=== PATIENT | male | born 1955 | race Caucasian/White ===

== ENCOUNTER 2023-11-24 12:30 | Outpatient (AMB) | payer MEDICARE, SELFPAY ==
--- NOTE | 2023-11-24 12:37 | MHC.PC.OV ---
Vital Signs 11/24/23 12:38 Height 5 ft 8 in Weight 229 lb BMI 34.8 BP 120/82 Blood Pressure Location Lt brachial Position Sitting Intake Visit Reasons: PE Intake Note: Patient here for a physical exam Lead Generation Specialist Required: No Accompanied by: Son Allergies No Known Allergies [NKA] Allergy (Verified 11/24/23 12:46) Medication List - Last Reconciled 11/24/23 by Kimmy Maher MD doxepin 100 mg (2 x 50 mg) PO BEDTIME 90 days quetiapine ER (Seroquel XR) 400 mg PO BEDTIME 90 days Tobacco use date assessed: 11/24/23 Fall risk assessment: 2 + Falls in past year Last assessed Fall Risk: 11/24/23 Dental Screening Dental Screen Date: 11/24/23 Did you have a dental visit in the last 12 months?: No Did you have a dental problem in the last 6 months where you did not have access to dental care?: No Was dental information given to patient?: Patient has dentist HPI HPI Comments History of Present Illness Details This is a 68-year-old male with mild major depression that comes for his physical exam accompanied by son. Has never had a colonoscopy and has family history of colon cancer in first-degree relative in her 50s. He follows with counseling frequently for his depression and has been stable on Seroquel. No chest pain or shortness on breath. [facility] Medical History Primary insomnia Surgical History History of back surgery Family History (Updated 11/24/23 @ 12:53 by Kimmy Maher MD) Mother Emphysema lung Cancer, Onset Age: 50 Father Blood clots Emphysema lung Family/Other Mental health disorder Substance use disorder Brother Cancer, Onset Age: 40 Social History Housing: Apartment Alcohol intake: never Patient Tobacco Use Status: Former Tobacco user Tobacco use type: Pipe Cigarettes Per Day: 12 e-Cigarette/Vaping Use: Currently Using Second Hand Smoke Exposure: No service: No Current occupational status: disabled Cognitive needs: No Hearing needs: No Vision needs: Yes Questionnaire PHQ-9 Over the last 2 weeks, how often have you been bothered by any of the following problems? 1. Little interest or pleasure in doing things: nearly every day 2. Feeling down, depressed, or hopeless: nearly every day 3. Trouble falling or staying asleep, or sleeping too much: more than half the days 4. Feeling tired or having little energy: more than half the days 5. Poor appetite or overeating: several days 6. Feeling bad about yourself - or that you are a failure or have let yourself or your family down: several days 7. Trouble concentrating on things, such as reading the newspaper or watching television: not at all 8. Moving or speaking so slowly that other people could have noticed. Or the opposite - being so fidgety or restless that you have been moving around a lot more than usual: not at all 9. Thoughts that you would be better off or of hurting yourself in some way: not at all Total score: 12 Depression Screening Interpretation: Positive Depression Screening Follow-up: Existing condition, In treatment, Community Mental Health Worker F/U and Follow-up Visit Requested Depression Screening Done: Yes 13555 - PHQ-9 Billing: Yes Source: Developed by Drs. Tavo Myrick, Sheeba Pike, Phil Clements and colleagues, with an educational dexter from [employer]. Thrive Questionnaire Date Thrive assessed: 11/24/23 I am a: Patient What is your living situation today?: I have a steady place to live Within the past 12 months, did the food you bought not last and you didn't have the money to get more?: Never true Within the past 12 months, did you worry whether your food would run out before you got money to buy more?: Never true Do you have trouble paying for medicines?: No Do you have trouble getting transportation to medical appointments?: No Do you have trouble paying your heating and electricity bill?: No Do you have trouble taking care of your child, family member or friend?: No Do you have trouble with day-to-day activities such as bathing, preparing meals, shopping, managing finances, etc.?: No Are you currently unemployed and looking for a job?: No Are you interested in more education?: No Please select the resources that you would like help with: None Currently or been in a relationship where the following occur: No concerns reported THRIVE Score: 0 AUDIT C Alcohol Use Questionnaire (AUDIT-C) 1. How often do you have a drink containing alcohol?: Never Total Score: 0 Score Reviewed/Action Taken: No MASSIEL-7 AMB Questionnaire MASSIEL-7 Date MASSIEL - 7 assessed: 11/24/23 Feeling nervous, anxious, or on edge: 3 = Nearly every day Not being able to stop or control worryin = Several days Worrying too much about different things: 2 = More than half the days Trouble relaxin = Not at all Being so restless that it is hard to sit still: 0 = Not at all Becoming easily annoyed or irritable: 0 = Not at all Feeling afraid as if something awful might happen: 1 = Several days Total MASSIEL-7 score (0-4 normal; 5-9 mild; 10-14 moderate; 15-21 severe): 7 Source: Developed by Drs. Tavo Myrick, Sheeba Pike, Phil Clements and colleagues, with an educational dexter from [employer]. MASSIEL-7 Assessment Billing MASSIEL-7 Assessment Tool: MASSIEL-7 Assessment 97280 Review of Systems Const All systems reviewed & are unremarkable except as noted in HPI and below Card Denies chest pain at rest, Denies chest pain with activity, Denies edema, Denies irregular heart rhythm, Denies claudication, Denies dyspnea, Denies dyspnea on exertion, Denies orthopnea, Denies paroxysmal nocturnal dyspnea and Denies slow heart rate Resp Denies cough, Denies dyspnea and Denies dyspnea on exertion GI Denies abdominal pain, Denies change in bowel habits, Denies excessive flatus, Denies nausea and Denies vomiting Denies urinary hesitancy, Denies urinary incontinence and Denies urinary urgency Musc Denies abnormal gait, Denies atrophy, Denies deformity and Denies limited range of motion Neuro Denies abnormal gait, Denies behavioral changes and Denies lack of coordination Psych Denies behavioral changes Physical exam (Primary Care) Vital Signs: Last Vital Signs BP 120/82 11/24/23 12:38 BMI result Body Mass Index 34.8 BMI Assessment/Plan discussion: High BMI High, discussed plan: lifestyle, weight reduction, dietary and physical activity Tobacco/Smoking Status: Tobacco use Status Tobacco use date assessed 11/24/23 11/24/23 12:45 Patient Tobacco Use Status Former Tobacco user 11/24/23 12:45 Tobacco use type Pipe 11/24/23 12:45 e-Cigarette/Vaping Use Currently Using 11/24/23 12:45 Are you ready to quit: Yes Tobacco cessation counseling provided: Yes Items discussed: QuitWorks Relapse Prevention: discussed the importance of a supportive environment, discussed negative mood or depression after quitting, weight gain after smoking is common and discussed dietary, exercise and/or lifestyle changes Number of minutes spent counselin PHQ-9: PHQ-9 Score PHQ-9: Total score 12 11/24/23 12:45 Depression Screening Interpretation: Positive Depression Screening Follow-up: Existing condition, In treatment, Community Mental Health Worker F/U and Follow-up Visit Requested Thrive Assessment: Date of Thrive Assessment Date Thrive assessed 11/24/23 11/24/23 12:45 Currently or been in a relationship where the following occur: No concerns reported HENMT Head: Yes normal to inspection, Yes normocephalic and Yes atraumatic Ears: external ears normal Eyes General: appearance normal, both eyes and all related structures Eyelids: Yes eyelids normal Conjunctivae: conjunctivae normal Neck Neck: Yes normal visual inspection and Yes supple Resp Effort & Inspection: normal respiratory effort Auscultation: clear to auscultation bilaterally Cardio Jugular venous distension: no JVD Rate: regular rate Rhythm: regular rhythm Heart sounds: S1 normal heart sound present and S2 normal heart sound present GI Inspection: Yes normal to inspection Palpation (GI): Soft to palpation and nontender Auscultation: normal bowel sounds Skin General skin exam: no rashes or lesions noted Neuro General: no focal motor deficits Extrem General: Yes full ROM Psych Appearance: grossly normal Assessment and Plan Assessment & Plan (1) Physical exam: Code(s): Z00.00 - Encounter for general adult medical examination without abnormal findings Plan: Repeat in a year. (2) Mild recurrent major depression: Code(s): F33.0 - Major depressive disorder, recurrent, mild Plan: Continue counseling. Continue Seroquel. Orders: Orders Comprehensive Dana. Panel Fast Today Z00.00 - Encounter for general adult medical examination without abnormal findings Lipid Panel Today E78.5 - Hyperlipidemia, unspecified, Z00.00 - Encounter for general adult medical examination without abnormal findings Referrals Open Access Screening Colonoscopy Referral Z12.11 - Encounter for screening for malignant neoplasm of colon Medications: Changed From quetiapine ER (Seroquel XR) 400 mg PO BEDTIME 90 days 90 tabs 1RF To quetiapine ER (Seroquel XR) 400 mg PO BEDTIME 30 days 30 tabs 6RF Coding Level of Care Code Est Pt Prev Care >65y(31178) Diagnoses Physical exam Z00.00 Mild recurrent major depression F33.0 Additional Codes MASSIEL-7 Assessment Billing - MASSIEL-7 Assessment Tool: MASSIEL-7 Assessment 55805 ([id number]) Time Spent (min) 35
[2023-11-24 12:38] VITALS: BP 120/82; BMI 34.8
== END 2023-11-24 13:02 | disposition home or self-care (01) ==
PROVIDERS: PCP Internal Medicine; Visit Provider Internal Medicine
DX: F33.0 Major depressive disorder, recurrent, mild (principal)
CPT/HCPCS: 99213

== ENCOUNTER 2024-08-11 11:20 | Outpatient (AMB) | payer MEDICARE, SELFPAY ==
[2024-08-11 11:23] VITALS: BP 126/78; PULSE 77; RESP 16; TEMP 37.2; O2SAT 94; BMI 35.8
--- NOTE | 2024-08-11 11:23 | MHC.PC.OV ---
Vital Signs 08/11/24 11:23 Height 5 ft 8 in Weight 235 lb 3.2 oz BMI 35.8 BP 126/78 Blood Pressure Location Lt brachial Position Sitting Respiration 16 Pulse 77 Pulse Source Pulse Oximeter Temp 99.0 F Temp Source Oral Pulse Oximetry (%) 94 Oxygen Delivery Method Room Air Intake Visit Reasons: Preop 08/22 left eye 6/ right eye Intake Note: Patient is here for a Pre-op for cataract extraction scheduled with Dr. Hancock on OS: 08/22/2024 and OD: 09/05/2024. Brush Clearer Surveying Required: No Accompanied by: Son Allergies No Known Allergies [NKA] Allergy (Verified 08/11/24 12:10) Medication List - Last Reconciled 08/11/24 by TONY Ruiz quetiapine ER (Seroquel XR) 400 mg PO BEDTIME 30 days Tobacco use date assessed: 08/11/24 Fall risk assessment: 2 + Falls in past year Last assessed Fall Risk: 08/11/24 Dental Screening Dental Screen Date: 08/11/24 Did you have a dental visit in the last 12 months?: No Did you have a dental problem in the last 6 months where you did not have access to dental care?: No Was dental information given to patient?: No HPI Preop 08/22 left eye / right eye HPI Details The patient presenting for preop clearance. Patient of Dr. Yu, was last seen in office on 11/24/2023 Surgery: Cataract surgery on both eyes. Patient reports that his left eye has been impaired for 10 years in the right eye for 5 years. Patient reports blurred vision difficulty driving at night. Date: Left eye 08/22/2024 and right eye 09/05/2024 Surgeon/location: Dr. Hancock at [place], [place] Anesthesia: Mac. Patient reports previous back surgery under general anesthesia that he tolerated well. The patient will be getting a less potent anesthesia for this procedure. The patient denies any clotting disorder and he is not on any anticoagulants. Past medical history significant for hepatitis-C, depression, insomnia, obesity The patient does not have any blood work on file. Labs ordered for the patient to complete as soon as possible. An EKG was added as well for the patient to complete at the same time. Discussed with patient that his clearances depending on these results. The patient denies shortness of breath, chest pain, heart palpitation, dizziness No abdominal pain/change in bowel habits No urinary symptoms PFSH Medical History Primary insomnia Surgical History History of back surgery Family History Mother Emphysema lung Cancer, Onset Age: 50 Father Blood clots Emphysema lung Family/Other Mental health disorder Substance use disorder Brother Cancer, Onset Age: 40 Social History Housing: Apartment Alcohol intake: never Patient Tobacco Use Status: Former Tobacco user Tobacco use type: Pipe Cigarettes Per Day: 12 e-Cigarette/Vaping Use: Currently Using Second Hand Smoke Exposure: No service: No Current occupational status: disabled Cognitive needs: No Hearing needs: No Vision needs: Yes (Glasses) Questionnaire Thrive Questionnaire Date Thrive assessed: 08/11/24 I am a: Patient What is your living situation today?: I have a steady place to live Within the past 12 months, did the food you bought not last and you didn't have the money to get more?: Never true Within the past 12 months, did you worry whether your food would run out before you got money to buy more?: Never true Do you have trouble paying for medicines?: No Do you have trouble getting transportation to medical appointments?: No Do you have trouble paying your heating and electricity bill?: No Do you have trouble taking care of your child, family member or friend?: No Do you have trouble with day-to-day activities such as bathing, preparing meals, shopping, managing finances, etc.?: No Are you currently unemployed and looking for a job?: No Are you interested in more education?: No Please select the resources that you would like help with: None Currently or been in a relationship where the following occur: No concerns reported THRIVE Score: 0 AUDIT C Alcohol Use Questionnaire (AUDIT-C) 1. How often do you have a drink containing alcohol?: Never Total Score: 0 Score Reviewed/Action Taken: No MASSIEL-7 AMB Questionnaire MASSIEL-7 Date MASSIEL - 7 assessed: 11/24/23 Source: Developed by Drs. Tavo Myrick, Sheeba Pike, Phil Clements and colleagues, with an educational dexter from [employer]. Review of Systems Const Denies headache(s) Eyes Reports blurry vision and Denies loss of vision ENT Denies vertigo, Denies dizziness, Denies headache(s) and Denies sore throat Card Denies chest pain, Denies leg edema and Denies lightheadedness Resp Denies cough, Denies hemoptysis and Denies wheezing GI Denies abdominal pain, Denies melena, Denies constipation, Denies diarrhea and Denies vomiting Denies dysuria, Denies urinary frequency and Denies urinary urgency Musc Denies arthralgias, Denies joint swelling, Denies numbness and Denies tingling Neuro Denies Abnormal speech present, Denies behavioral changes, Denies vertigo, Denies dizziness, Denies headache(s), Denies loss of vision, Denies memory loss, Denies numbness and Denies tingling Psych Reports anxiety, Denies behavioral changes, Reports depression, Denies memory loss, Denies panic attacks and Reports other (Insomnia) Jaiv/Lymph Denies easy bleeding and Denies easy bruising Aller/Immun Denies wheezing Physical exam (Primary Care) Vital Signs: Last Vital Signs Temp 99.0 F 08/11/24 11:23 Pulse 77 08/11/24 11:23 Resp 16 08/11/24 11:23 BP 126/78 08/11/24 11:23 Pulse Ox 94 08/11/24 11:23 Oxygen Delivery Method Room Air 08/11/24 11:23 BMI result Body Mass Index 35.8 Tobacco/Smoking Status: Tobacco use Status Tobacco use date assessed 08/11/24 08/11/24 11:26 Patient Tobacco Use Status Former Tobacco user 08/11/24 11:26 Tobacco use type Pipe 08/11/24 11:26 e-Cigarette/Vaping Use Currently Using 08/11/24 11:26 Thrive Assessment: Date of Thrive Assessment Date Thrive assessed 08/11/24 08/11/24 11:26 Currently or been in a relationship where the following occur: No concerns reported Const General: healthy appearing, no acute distress, alert and awake Nutritional Appearance: well nourished Orientation/consciousness: oriented to person, oriented to place and oriented to time HENMT Ears: TM's normal bilaterally General nose exam: Normal nasal mucous membranes and turbinates present Eyes Conjunctivae: conjunctivae normal Sclerae: sclerae normal Pupils: Equal, round and reactive pupils present Neck Neck: Yes no lymphadenopathy and Yes no JVD Thyroid: Thyroid normal Carotids: no bruits Resp Effort & Inspection: normal respiratory effort and not tachypneic Auscultation: no crackles, no rales, no rhonchi and no wheezes Cardio Rate: regular rate Rhythm: regular rhythm Heart sounds: no murmurs and normal S1 and S2 GI Palpation (GI): Soft to palpation, nontender, no hepatomegaly and no splenomegaly Auscultation: normal bowel sounds Skin General skin exam: no rashes or lesions noted and dry skin Neuro General: oriented to person, oriented to place and oriented to time Cranial nerves: Yes Equal, round and reactive pupils present Speech: No Abnormal speech present Gait exam (Neuro): Normal gait present Motor exam (neuro): no tremor noted Extrem Right upper extremity: full ROM Left upper extremity: full ROM Right lower extremity: full ROM; no edema Left lower extremity: full ROM; no edema Psych Mental Status: mental status grossly normal Speech and movement: Normal speech and movement present Affect: normal affect Attitude: cooperative Thought process: Normal thought process present Coding Level of Care Code Tele Est Pt Level 3 (73075) Diagnoses Preoperative clearance Z01.818 Blurry vision H53.8 Chronic hepatitis C without hepatic coma B18.2 Hepatic coma status: without hepatic coma Viral hepatitis chronicity: chronic Mild recurrent major depression F33.0 Obesity (BMI 30.0-34.9) E66.9 Primary insomnia F51.01 Time Spent (min) 35 Assessment & Plan Assessment & Plan (1) Preoperative clearance: Code(s): Z01.818 - Encounter for other preprocedural examination Category: Medical Plan: Upon completing ordered labs an EKG that are within reasonable limits. The patient would be at acceptable risk for proposed surgery. Reviewed with the patient that no surgery is completely free of risk and that this examination is to assist the surgeon in reviewing informed consent (2) Blurry vision: Code(s): H53.8 - Other visual disturbances Category: Medical Plan: Pending bilateral cataract surgery to improve vision (3) Hepatitis C: Code(s): B19.20 - Unspecified viral hepatitis C without hepatic coma Category: Medical Qualifiers: Hepatic coma status: without hepatic coma Viral hepatitis chronicity: chronic Qualified Code(s): B18.2 - Chronic viral hepatitis C Plan: Patient reports that he looked into possible treatment for his hep C. He is hopeful due to someone that he know, hep C became undetectable without treatment. (4) Mild recurrent major depression: Code(s): F33.0 - Major depressive disorder, recurrent, mild Category: Medical Plan: Encouraged CBT. Continue Seroquel 400 mg (5) Obesity (BMI 30.0-34.9): Code(s): E66.9 - Obesity, unspecified Category: Medical Plan: Reinforced low-cholesterol/carbohydrate/fat diet and activity as tolerated (6) Primary insomnia: Code(s): F51.01 - Primary insomnia Category: Medical Plan: Reinforced sleeping hygiene. Continue Seroquel 300 mg at bedtime Orders: Orders TSH reflex Free T4 08/11/24 B19.20 - Unspecified viral hepatitis C without hepatic coma, E66.9 - Obesity, unspecified, F33.0 - Major depressive disorder, recurrent, mild, H53.8 - Other visual disturbances, Z01.818 - Encounter for other preprocedural examination Hemoglobin A1c 08/11/24 B19.20 - Unspecified viral hepatitis C without hepatic coma, E66.9 - Obesity, unspecified, F33.0 - Major depressive disorder, recurrent, mild, H53.8 - Other visual disturbances, Z01.818 - Encounter for other preprocedural examination Complete Blood Count Auto Diff 08/11/24 B19.20 - Unspecified viral hepatitis C without hepatic coma, E66.9 - Obesity, unspecified, F33.0 - Major depressive disorder, recurrent, mild, H53.8 - Other visual disturbances, Z01.818 - Encounter for other preprocedural examination Comprehensive Met. Panel 08/11/24 B19.20 - Unspecified viral hepatitis C without hepatic coma, E66.9 - Obesity, unspecified, F33.0 - Major depressive disorder, recurrent, mild, H53.8 - Other visual disturbances, Z01.818 - Encounter for other preprocedural examination UA CC w/rflx Micro + Cult 08/11/24 B19.20 - Unspecified viral hepatitis C without hepatic coma, E66.9 - Obesity, unspecified, F33.0 - Major depressive disorder, recurrent, mild, H53.8 - Other visual disturbances, Z01.818 - Encounter for other preprocedural examination ECG 12 lead EKG 08/11/24 Z01.818 - Encounter for other preprocedural examination
--- OUTSIDE RECORDS SUMMARY | 2024-08-11 12:51 | XMS_ITS ---
Author Name [facility] Organization [facility] Address [address] [place] [id number] Care Team Providers Care Business Machine Mechanic Name Role Phone TA BROOKS Primary Care [...] Name Patient's Relationship to Policy Pelletier NIKO BS CT FEDERAL PREFERRED PROVIDER ORGANIZAT ION (PPO) STAND TOMAS SELF Apr 06, 2009 [id number] [phone] HONEYJAMESAaliyah HEMAL PATIENT [place] [employer]PR[employer] PLAN PRESCRIPT ION CAREM ARK FEPRX Apr 06, 2010 [id number] HEMAL NAVA PATIENT [employer] [facility] (WNR) MEDICARE ADVANTAGE [facility] ([facility] Nov 04, 2022 [id number] [phone] HEMAL NAVA PATIENT MEDICARE (WNR) MEDICARE (M) PART A Apr 06, 2004 PART A [id number] HEMAL NAVA PATIENT Selected Encounter This section includes the information on record at OR for the Encounter. Date/Time Encounter Type Encounter Description Reason Pro vider Source August 08, 2024 09:50 AM Outpatient Encounter [facility] Encounter Template Text not used by OR Plan of Treatment: Future Appointments (+ 6 months) and Future Tests (+/- 45 days) The Plan of Treatment section includes future care activities for the [facility] This section includes future appointments and future orders which are active, pending or scheduled. Future Appointments This section includes appointments that were scheduled to occur 6 months from the date of the Encounter, up to a maximum of 20 appointments. The data comes from all OR treatment facilities. Appointment Date/Time Appointment Type Appointme nt Facility Name August 15, 2024 01:00 PM AMBULATORY - PSYCHIATRY [facility] Social History: Smoking Status (Most current) and Tobacco Use (All prior to encounter date) This section includes the most current, and the historical, smoking and tobacco- related health factors from the OR facility where the Encounter took place. Current Smoking Status This section includes the most current smoking, or tobacco-related health factor, from the OR facility where the Encounter took place. Date/Time Current Smoking Status Comment Facil ity Jan 30, 2020 01:00 PM [facility]-TOBACCO USER EVERY DAY [facility] Tobacco Use History This section includes a history of the smoking, or tobacco-related health factors, that were collected on or before the date of the Encounter. The data comes from the OR facility where the Encounter took place. 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 Encounter Notes: All associated encounter notes This section contains the clinical notes associated to the Encounter. Date/Time Encounter Note(s) Provider Source August 08, 2024 09:50 AM ADMINISTRATIVE NOT E: LOCAL TITLE: ADMINISTRATIVE NOTE STANDARD TITLE: ADMINISTRATIVE NOTE DATE OF NOTE: AUGUST 08, 2024@09:50 ENTRY DATE: AUGUST 08, 2024@09:50:59 AUTHOR: BERNA GRIMALDO COSIGNER: URGENCY: STATUS: COMPLETED ADMINISTRATIVE NOTE Has ADDENDA Provider made first call attempt No show letter mailed 14 day leter mailed rtc dc 08/22/2024 /bridgett/ Berna Grimaldo [employer] Signed: 08/08/2024 09:52 08/10/2024 ADDENDUM STATUS: COMPLETED called LVM for CB at [phone] 14 day letter mailed /bridgett/ Berna Grimaldo [employer] Signed: 08/10/2024 11:06 BERNA GRIMALDO
--- OUTSIDE RECORDS SUMMARY | 2024-08-11 12:51 | XMS_ITS ---
Author Name [facility] [facility] [place] Address [address] [place] [address] Care Team Providers Care [place] Administrator Name Role Phone TA BROOKS Primary Care [...] Name Patient's Relationship to Policy Pelletier NIKO [facility] FEDERAL PREFERRED PROVIDER ORGANIZAT ION (PPO) STAND TOMAS SELF Apr 06, 2009 [id number] HONEYJAMESAaliyah HEMAL PATIENT [employer] FEPRX PLAN PRESCRIPT ION CAREM ARK FEPRX Apr 06, 2010 [id number] HEMAL NAVA PATIENT HUMANA [facility]) MEDICARE ADVANTAGE [facility] ([facility]) Nov 04, 2022 [id number] [phone] HEMAL NAVA PATIENT MEDICARE (WNR) MEDICARE (M) PART A Apr 06, 2004 PART A [id number] HEMAL NAVA PATIENT Selected Encounter This section includes the information on record at [place] for the Encounter. Date/Time Encounter Type Encounter Description Reason Pro vider Source August 14, 2023 10:51 PM Outpatient Encounter ADMIN PAT ACTIVTIES (MASNONCT) IHE Encounter Template Text not used by MS Social History: Smoking Status (Most current) and Tobacco Use (All prior to encounter date) This section includes the most current, and the historical, smoking and tobacco- related health factors from the [place] facility where the Encounter took place. Current Smoking Status This section includes the most current smoking, or tobacco-related health factor, from the [place] facility where the Encounter took place. Date/Time Current Smoking Status Comment Facil ity Jan 30, 2020 01:00 PM VA-TOBACCO USER EVERY DAY [facility] Tobacco Use History This section includes a history of the smoking, or tobacco-related health factors, that were collected on or before the date of the Encounter. The data comes from the [place] facility where the Encounter took place. Date/Time Smoking Status/Tobacco Use Comment F acility Jan 30, 2020 01:00 PM VA-TOBACCO USE ADVICE [facility] Jan 30, 2020 01:00 PM VA-TOBACCO USE PI/SENIOR RESEARCH ASSOCIATE NO [place] [facility] Jan 30, 2020 01:00 PM VA-TOBACCO USE MED NO [place] [facility] Jan 30, 2020 01:00 PM VA-TOBACCO USE WI 30 MIN OF WAKEUP [place] [facility] [place] [facility] Jan 30, 2020 01:00 PM [facility] Encounter Notes: All associated encounter notes [...] CUSTOMER CARE MEDICATION RENEWAL: Date: August Division: [facility] referred by Pharmacy Call Center for medication renewal: Non-controlled/maintenan ce medication Medications requested: [id number] QUETIAPINE FUMARATE 100MG TAB Defer to specialty clinic To be mailed . Please review and renew if appropriate. *This note was generated by [facility] Pharmacy Customer Care. If you have any questions or need assistance, do not contact this author. Please refer all questions to your local, on-site pharmacy departments. /bridgett/ RHODA MA CPhT Environmental Health Nurse, [place]/Pharmacy Customer Care Signed: 08/14/2023 22:52 Receipt Acknowledged By: 08/20/2023 16:32 /sabina OGLESBY DO Psychiatrist 08/17/2023 ADDENDUM STATUS: COMPLETED I received his voicemail- I left the number of the front line supervisor, and asked him to call to make an appointment with Dr. Oglesby. I also left my number for call back. /sabina NUNEZ Registered Nurse Signed: 08/17/2023 10:10 08/19/2023 ADDENDUM STATUS: COMPLETED I called and left another message with mu number, as well as the front line supervisor number, and asked him to call to [...] UNSIGNED Addendum. DEANNA OGLESBY [facility] [place] [facility] August 14, 2023 10:51 PM PHARMACY NOTE: LOCAL TITLE: V1 PHARMACY CUSTOMER CARE MEDICATION RENEWAL STANDARD TITLE: PHARMACY NOTE DATE OF NOTE: AUGUST 14, 2023@22:51 ENTRY DATE: AUGUST 14, 2023@22:51:40 AUTHOR: RHODA MA EXP COSIGNER: URGENCY: STATUS: COMPLETED V1 PHARMACY CUSTOMER CARE MEDICATION RENEWAL Has ADDENDA Date: August Division: [facility] referred by Pharmacy Call Center for medication renewal: Non-controlled/maintenan ce medication Medications requested: [id number] QUETIAPINE FUMARATE 100MG TAB Defer to specialty clinic To be mailed . Please review and renew if appropriate. *This note was generated by [facility] Pharmacy Customer [facility]. If you have any questions or need assistance, do not contact this author. Please refer all questions to your local, on-site pharmacy departments. /sabina MA CPhT Environmental Health Nurse, [place]/Pharmacy Customer Care Signed: 08/14/2023 22:52 Receipt Acknowledged [...] I left the number of the front line supervisor, and asked him to call to make an appointment with Dr. Oglesby. I also left my number for call back. /sabina NUNEZ Registered Nurse Signed: 08/17/2023 10:10 08/19/2023 ADDENDUM STATUS: COMPLETED I called and left another message with mu number, as well as the front line supervisor number, and asked him to call to make an appointment. I also asked him to call me to discuss medication. /bridgett/ PATRICA NUNEZ Registered Nurse Signed: 08/19/2023 14:14 08/20/2023 ADDENDUM STATUS: COMPLETED I received [facility] voicemail and left another message asking for a call back. If I do not hear from him today, I will send a letter. /sabina NUNEZ Registered Nurse Signed: 08/20/2023 08:37 08/21/2023 ADDENDUM STATUS: COMPLETED Letter sent in an attempt to re-engage /sabina NUNEZ Registered Nurse Signed: 08/21/2023 12:14 RHODA MA [place] [facility]
--- OUTSIDE RECORDS SUMMARY | 2024-08-11 12:51 | XMS_ITS | Continuity of Care Document ---
Author Name [facility] Organization [facility] Care Team Providers Care Inspector Machined Parts Name Role Phone [facility] Unavailable Unavailable Problems Combined list of problems from Department of Defense and Veterans Affairs facilities. It does not include entries that were removed or entered in error. 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 May 31, 2021 Entered By: DEANNA OGLESBY Comment: reviewed [place] [facility] [place] [facility] Opioid dependence Active Condition Oc 2019 Entered By: ROZINA BRYANT Comment: Opioid (Heroin) Use Disorder, SevereApr 2020 Entered By: DEANNA OGLESBY Comment: on methadone, prescribed by [facility] Sedative abuse Active Condition [place] [facility] Tobacco dependence Active Condition Jan 30, 2020 Entered By: ROZINA BRYANT Comment: Tobacco (Pipe Tobacco) Use Disorder, ModerateFeb 2021 Entered By: DEANNA OGLESBY Comment: reviewed [place] [facility] Diagnosis: ICD-10-CM F11.20 Opioid dependence, uncomplicated Active Diagnosis [facility] [facility] Medications Combined list of outpatient medications from Department of Defense and Veterans Affairs facilities.Medications provided include 1) outpatient medications from the last 15 months, and 2) patient-reported medications. Medication Details Route Status Patient Instructions Prescription Expires Prescription Number Last Dispense Date Ordering Provider Order Date Order Qty Source MELATONIN CAP/TAB TAKE BY MOUTH ORAL ACTIVE ROBINA OGLESBY 2021 [place] [facility] [place] [facility] [facility] METHADONE HCL 10MG TAB TAKE SIX TABLETS BY MOUTH ONCE DAILY ORAL ACTIVE ROBINA OGLESBY JULIA 2020 [facility] NALOXONE HCL 4MG/SPRAY SOLN,SPRAY, NASAL INSTILL 1 SPRAY ONE NOSTRIL ONE TIME NEEDED FOR OPIOID OVERDOSE CALL 911 WITH ADMINIST RATION. REPEAT WITH SECOND DEVICE IF SYMPTOMS RETURN NASAL 06/04/2024 [id number] ROBINA OGLESBY JULIA 2024 [facility] Encounters Combined list of: 1) Encounters from Department of Veterans Affairs facilities going backup to the last 18 months, not all [place] inpatient encounters are included; 2) Encounters from the Department of [facility] facilities going backup to 280 months. Location Location Details Encounter Type Encounter Number Reason For Visit Attending Provider ADM Date DC Date Status Disposition Source [facility] [place] [facility] Outpatient Encounter [id number] 04/14 [place] [facility] [facility] [place] O/P EST MOD 30 MIN [id number] Diagnos is: ICD-10- CM F11.20 Opioid depende nce, uncompl icated ROBINA OGLESBYI AN 04/15 [facility] [place] Outpatient Encounter [id number] 05/20 [place] [facility] [place] [place] [facility] [place] Encounter [id number] 05/20 [place] [facility] [place] [facility] [place] [facility] Encounter [id number] 05/27 [place] [facility] [place] [facility] [place] Outpatient Encounter [id number] [facility] [place] Outpatient Encounter [id number] 06/17 [facility] [place] [facility] Encounter [id number] 07/08 [facility] [place] Encounter [id number] 08/13 [facility] [place] [place] En[facility] [id number] 02/09 [facility] [place] [facility] [place] Encounter [id number] 05/05 [facility] [place] SYNCH AUDIO-ONLY EST LOW 20 [id number] Diagnos is: ICD-10- CM F11.20 Opioid depende nce, uncompl icated MIGUE OGLESBY AN 05/05 [facility] [place] Outpatient Encounter [id number] 08/08 [facility] [place] [facility] Outpatient Encounter [id number] 08/08 [place] [facility] [facility] Social History Combined list of available smoking, tobacco, and other social history from Department of Defense and Veterans Affairs facilities. Social History Type Response Date Comment Sourc e Tobacco smoking status NHIS VA-TOBACCO USER EVERY DAY 05/31/2021 [place] History of tobacco use VA-TOBACCO USE WI 30 MIN OF WAKEUP 05/31/2021 [place] History of tobacco use VA-TOBACCO USER EVERY DAY 01/30/2020 [place] [facility] [facility] Plan of Care List of future care activities from Department of Veterans Affairs facilities. Additional future care activities may be listed in the Assessment and Plan section. Date/Time Care Activity Care Activity Detail Facili ty 08/15/2024 AMBULATORY - PSYCHIATRY AMBULATORY - PS[facility]
--- OUTSIDE RECORDS SUMMARY | 2024-08-11 12:51 | XMS_ITS | Encounter Summary ---
Author Name [facility] Organization [facility] [place] Address [address] [place] [address] Care Team Providers Care Dehydrator Tender Name Role Phone TA BROOKS Primary Care [...] Name Patient's Relationship to Policy Pelletier NIKO [facility] FEDERAL PREFERRED PROVIDER ORGANIZAT ION (PPO) STAND TOMAS SELF Apr 06, 2009 [id number] HONEYJAMESAaliyah HEMAL PATIENT [employer] FEPRX PLAN PRESCRIPT ION CAREM ARK FEPRX Apr 06, 2010 [id number] HONEYJAMESAaliyah HEMAL PATIENT HUMANA [facility] (WNR) MEDICARE ADVANTAGE [facility] (WNR) Nov 04, 2022 [id number] [phone] HONEYJAMESAaliyah HEMAL PATIENT MEDICARE (WNR) MEDICARE (M) PART A Apr 06, 2004 PART A [id number] [phone] HEMAL NAVA PATIENT Selected Encounter This section includes the information on record at [place] for the Encounter. Date/Time Encounter Type Encounter Description Reason Pro vider Source May 05, 2024 02:30 PM Outpatient Encounter [facility] Encounter Template Text not used by [place] Plan of Treatment: Future Appointments (+ 6 months) and Future Tests (+/- 45 days) The Plan of Treatment section includes future care activities for the patient from all [place] [facility]. This section includes future appointments and future orders which are active, pending or scheduled. Future Appointments This section includes appointments that were scheduled to occur 6 months from the date of the Encounter, up to a maximum of 20 appointments. The data comes from all [place] treatment facilities. Appointment Date/Time Appointment Type Appointme nt Facility Name August 08, 2024 09:30 AM AMBULATORY - PSYCHIATRY [facility] August 15, 2024 01:00 PM AMBULATORY - PSYCHIATRY [facility] Active, Pending, and Scheduled Orders This section includes a listing of several types of active, pending, and scheduled orders, including clinic medications orders, diagnostic test orders, procedure orders and consult orders; where the start date of the order is 45 days before the date of the Encounter or 45 days after the date of theEncounter. The data comes from all [place] treatment [facility]. Test Date/Time Test Type Test Details Facility Name May 02, 2024 02:50 PM Consult Order [facility] Cons Hot Car Operator's Choice [place] Social History: Smoking Status (Most current) and [...] Date/Time Current Smoking Status Comment Facil ity May 31, 2021 03:30 PM VA-TOBACCO USER EVERY DAY [place] Tobacco Use History This section includes a history of the smoking, or tobacco-related health factors, that were collected on or before the date of the Encounter. The data comes from the [place] facility where the Encounter took place. Date/Time Smoking Status/Tobacco Use Comment F acility May 31, 2021 03:30 PM VA-TOBACCO USE ADVICE [place] May 31, 2021 03:30 PM VA-TOBACCO USE CHILD WELFARE DIRECTOR NO [place] May 31, 2021 03:30 PM VA-TOBACCO USE MED YES [place] May 31, 2021 03:30 PM VA-TOBACCO USE WI 30 MIN OF WAKE UP [place] May 31, 2021 03:30 PM VA-TOBACCO USER EVERY DAY [place] Encounter Notes: All associated encounter notes This [...]
--- OUTSIDE RECORDS SUMMARY | 2024-08-11 12:51 | XMS_ITS | Encounter Summary ---
Author Name [facility] [place] [facility] [place] [facility] [place] Address [address] [place] [address] Care Team Providers Care Coding Spec Name Role Phone TA BROOKS Primary Care [...] Name Patient's Relationship to Policy Pelletier NIKO [facility] FEDERAL PREFERRED PROVIDER ORGANIZAT ION (PPO) STAND TOMAS SELF Apr 06, 2009 [id number] HONEYJAMESAaliyah LOWELL PATIENT [employer] FEPRX PLAN PRESCRIPT ION CAREM ARK FEPRX Apr 06, 2010 [id number] HONEYJAMESAaliyah LOWELL PATIENT HUMANA [facility] (WNR) MEDICARE ADVANTAGE [facility] (WNR) Nov 04, 2022 [id number] [phone] HONEYJAMESAaliyah LOWELL PATIENT MEDICARE (WNR) MEDICARE (M) PART A Apr 06, 2004 PART A [id number] LOWELL NAVA PATIENT Selected Encounter This section includes the information on record at [place] for the Encounter. Date/Time Encounter Type Encounter Description Reason Pro vider Source August 08, 2024 09:30 AM Outpatient Encounter [facility] Encounter Template Text not used by [place] Plan of Treatment: Future Appointments (+ 6 months) and Future Tests (+/- 45 days) The Plan of Treatment section includes future care activities for the patient from all [place] [facility] This section includes future appointments and future orders which are active, pending or scheduled. Future Appointments This section includes appointments that were scheduled to occur 6 months from the date of the Encounter, up to a maximum of 20 appointments. The data comes from all [place] treatment facilities. Appointment Date/Time Appointment Type Appointme nt Facility Name August 15, 2024 01:00 PM AMBULATORY - PS[facility]IATRY [facility] Social History: Smoking Status (Most current) and Tobacco Use (All prior to encounter date) This section includes the most current, and the historical, smoking and tobacco- related health factors from the [place] facility where the Encounter took place. Current Smoking Status This section includes the most current smoking, or tobacco-related health factor, from the [place] facility where the Encounter took place. Date/Time Current Smoking Status Comment [facility]il [place] May 31, 2021 03:30 PM VA-TOBACCO USER EVERY DAY [place] Tobacco Use History This section includes a history of the smoking, or tobacco-related health factors, that were collected on or before the date of the Encounter. The data comes from the [place] facility where the Encounter took place. Date/Time Smoking Status/Tobacco Use Comment F acility May 31, 2021 03:30 PM VA-TOBACCO USE ADVICE [place] May 31, 2021 03:30 PM VA-TOBACCO USE ANALYTICAL LAB ANALYST NO [place] May 31, 2021 03:30 PM VA-TOBACCO USE MED YES [place] May 31, 2021 03:30 PM VA-TOBACCO USE WI 30 MIN OF WAKE UP [place] May 31, 2021 03:30 PM VA-TOBACCO USER EVERY DAY [place] Encounter Notes: All associated encounter notes This section contains the clinical notes associated to the Encounter. Date/Time Encounter Note(s) Provider Source August 08, 2024 09:39 AM CLERICAL NOTE: LOCAL TITLE: APPOINTMENT NO SHOW STANDARD TITLE: CLERICAL NOTE DATE OF NOTE: AUGUST 08, 2024@09:39 ENTRY DATE: AUGUST 08, 2024@09:39:27 AUTHOR: DEANNA OGLESBY EXP COSIGNER: URGENCY: STATUS: COMPLETED Patient Name: LOWELL NAVA Patient SSN: [id number] Date and time of Appointment No show : 08/08/24 09:30 PATIENT PHONE - PHONE NUMBER [CELLULAR] - Patient's medical record was reviewed. Follow-up actions were determined and initiated: Please check/complete as applies: [X]Telephoned Directly [ ]Re-scheduled for next available appt [X]Sent a N0-show letter ( must call for appointment) [ ]Other (Emergent/Overbook, etc.): Additional Comments: Lowell did not show for his appointment with me this morning. I called the [id number] x2 but there was no answer (cell no longer belongs to him). I left a HIPAA-compliant message with instructions for rescheduling. A letter will be sent. Future Clinic Visits No data available /bridgett/ DEANNA OGLESBY DO Psychiatrist Signed: 08/08/2024 09:47 DEANNA OGLESBY [place]
== END 2024-08-11 12:28 | disposition home or self-care (01) ==
LOC: HO.HMCH 11:21
PROVIDERS: PCP Internal Medicine
DX: H53.8 Other visual disturbances (principal); B18.2 Chronic viral hepatitis C; Z68.35 Body mass index [BMI] 35.0-35.9, adult; E66.9 Obesity, unspecified; Z01.818 Encounter for other preprocedural examination; F33.0 Major depressive disorder, recurrent, mild; F51.01 Primary insomnia

== ENCOUNTER → 2024-08-11 11:20 | Outpatient (BNVA) | payer MEDICARE, SELFPAY | PROVIDERS: PCP Internal Medicine | DX: Z01.818 Encounter for other preprocedural examination (principal); H53.8 Other visual disturbances; B18.2 Chronic viral hepatitis C; F33.0 Major depressive disorder, recurrent, mild; F51.01 Primary insomnia; E66.9 Obesity, unspecified; Z68.35 Body mass index [BMI] 35.0-35.9, adult | CPT/HCPCS: 99212 ==

== ENCOUNTER 2024-08-22 12:17 | Outpatient (REF) | payer MEDICARE, SELFPAY ==
--- OUTSIDE RECORDS SUMMARY | 2024-07-07 11:45 | XMS_ITS | Encounter Summary ---
Author Name [facility] [place] [facility] [place] [facility] [place] Address [address] [place] [id number] Care Team Providers Care Steel Rule Die Maker Name Role Phone TA BROOKS Primary Care Provider Unavailabl e Insurance Providers: All historical and current Section Date Range: From patient's date of to the date document was created. This section includes the names of all active insurance providers for the patient. Insurance Provider Type of Coverage Plan Name Start of Policy Coverage End of Policy Coverage Group Number Member ID Insurance Provider's Telephone Number Policy Pelletier's Name Patient's Relationship to Policy Pelletier NIKO [facility] FEDERAL PREFERRED PROVIDER ORGANIZAT ION (PPO) STAND TOMAS SELF Apr 06, 2009 [id number] HONEYJAMESAaliyah HEMAL PATIENT [employer] [employer]PR[employer] PLAN PRESCRIPT ION [employer] FEPRX Apr 06, 2010 [id number] HONEYJAMESAaliyah HEMAL PATIENT HUMANA [facility] (WNR) MEDICARE ADVANTAGE [facility] (WNR) Nov 04, 2022 [id number] [phone] HONEYJAMESAaliyah HEMAL PATIENT MEDICARE (WNR) MEDICARE (M) PART A Apr 06, 2004 PART A [id number] HEMAL NAVA PATIENT Selected Encounter This section includes the information on record at [place] for the Encounter. Date/Time Encounter Type Encounter Description Reason Pro vider Source May 05, 2024 02:30 PM Outpatient Encounter [facility] IHE Encounter Template Text not used by [place] Plan of Treatment: Future Appointments (+ 6 months) and Future Tests (+/- 45 days) The Plan of Treatment section includes future care activities for the patient from all [place] [facility]. This section includes future appointments and future orders which are active, pending or scheduled. Future Appointments This section includes appointments that were scheduled to occur 6 months from the date of the Encounter, up to a maximum of 20 appointments. The data comes from all [place] treatment facilities. Appointment Date/Time Appointment Type Appointme nt Facility Name August 08, 2024 09:30 AM AMBULATORY - PSYCHIATRY SP [facility] Active, Pending, and Scheduled Orders This section includes a listing of several types of active, pending, and scheduled orders, including clinic medications orders, diagnostic test orders, procedure orders and consult orders; where the start date of the order is 45 days before the date of the Encounter or 45 days after the date of theEncounter. The data comes from all [facility]. Test Date/Time Test Type Test Details Facility Name May 02, 2024 02:50 PM Consult Order COMM[facility]ITY CARE-MENTAL HEALTH Cons Blast Furnace Keeper Helper's Choice [place] Social History: Smoking Status (Most current) and Tobacco Use (All prior to encounter date) This section includes the most current, and the historical, smoking and tobacco- related health factors from the [place] facility where the Encounter took place. Current Smoking Status This section includes the most current smoking, or tobacco-related health factor, from the [place] facility where the Encounter took place. Date/Time Current Smoking Status Comment Odilon ity May 31, 2021 03:30 PM VA-TOBACCO USER EVERY DAY [place] Tobacco Use History This section includes a history of the smoking, or tobacco-related health factors, that were collected on or before the date of the Encounter. The data comes from the [place] facility where the Encounter took place. 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 Date/Time Encounter Note(s) Provider Source May 05, 2024 04:10 PM MENTAL HEALTH COUN SELING NOTE: LOCAL TITLE: OEND PATIENT EDUCATION STANDARD TITLE: MENTAL HEALTH COUNSELING NOTE DATE OF NOTE: MAY 05, 2024@16:10 ENTRY DATE: MAY 05, 2024@16:10:33 AUTHOR: DEANNA OGLESBY EXP COSIGNER: URGENCY: STATUS: COMPLETED Patient's indication for naloxone: Opiod use disorder Patient's history of naloxone use: Patient had received a naloxone kit greater than 1 year ago Prescriber and/or trained clinical staff reinforced opioid overdose prevention, recognition, and response education and naloxone use and disposal (e.g., by providing and reviewing VA pamphlets below). Because patient is still at-risk for overdose, a new naloxone prescription is recommended. Informed patient that training/education of potential bystanders on opioid overdose is also recommended. Education provided to: Patient Naloxone An order was placed for naloxone. Additional Information: Has patient ever had prior hypersensitivity reaction or adverse drug reaction to naloxone or naltrexone? No Patient would like prescription: By Mail /es/ DEANNA OGLESBY DO Psychiatrist Signed: 05/05/2024 16:11 DEANNA OGLESBY
--- OUTSIDE RECORDS SUMMARY | 2024-07-07 11:45 | XMS_ITS ---
Author Name [facility] [place] [facility] [place] [facility] [place] Address [address] [place] [address] Care Team Providers Care Lieutenant Ballistics Name Role Phone TA BROOKS Primary Care [...] Name Patient's Relationship to Policy Pelletier NIKO [facility] FEDERAL PREFERRED PROVIDER ORGANIZAT ION (PPO) STAND TOMAS SELF Apr 06, 2009 [id number] HONEYJAMESAaliyah HEMAL PATIENT [employer] PLAN PRESCRIPT ION CAREM ARK FEPRX Apr 06, 2010 [id number] HEMAL NAVA PATIENT HUMANA [facility] ([facility]) MEDICARE ADVANTAGE [facility] ([facility]) Nov 04, 2022 [id number] [phone] HEMAL NAVA PATIENT MEDICARE (WNR) MEDICARE (M) PART A Apr 06, 2004 PART A [id number] [phone] HEMAL NAVA PATIENT Selected Encounter This section includes the information on record at [place] for the Encounter. Date/Time Encounter Type Encounter Description Reason Pro vider Source August 14, 2023 10:51 PM Outpatient Encounter ADMIN PAT ACTIVTIES (MASNONCT) IHE Encounter Template Text not used by [place] Social History: Smoking Status (Most current) and Tobacco Use (All prior to encounter date) This section includes the most current, and the historical, smoking and tobacco- related health factors from the [place] facility where the Encounter took place. Current Smoking Status This section includes the most current smoking, or tobacco-related health factor, from the [place] facility where the Encounter took place. Date/Time Current Smoking Status Comment Facil ity Jan 30, 2020 01:00 PM VA-TOBACCO USER EVERY DAY [facility] Tobacco Use History This section includes a history of the smoking, or tobacco-related health factors, that were collected on or before the date of the Encounter. The data comes from the [place] facility where the Encounter took place. Date/Time Smoking Status/Tobacco Use Comment F acility Jan 30, 2020 01:00 PM VA-TOBACCO USE ADVICE 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 Jan 30, 2020 01:00 PM VA-TOBACCO USE MED NO [facility] Jan 30, 2020 01:00 PM VA-TOBACCO USE WI 30 MIN OF WAKEUP [place] [facility] [place] [facility] Jan 30, 2020 01:00 PM [facility] Encounter Notes: All associated encounter notes This section contains the clinical notes associated to the Encounter. Date/Time Encounter Note(s) Provider Source August 17, 2023 07:19 AM ADDENDUM: LOCAL TITLE: Addendum STANDARD TITLE: ADDENDUM DATE OF NOTE: AUGUST 17, 2023@07:19:18 ENTRY DATE: AUGUST 17, 2023@07:19:19 AUTHOR: DEANNA OGLESBY COSIGNER: URGENCY: STATUS: COMPLETED Patient was last seen by me in April,. At that time, he was not prescribed quetiapine. He missed his last two appointments with me. Patrica, please try and contact to schedule a follow-up with me. In my experience he can be difficult to get ahold of. Thank you. /sabina OGLESBY DO Psychiatrist Signed: 08/17/2023 07:21 Receipt Acknowledged By: 08/21/2023 12:13 /sabina NUNEZ Registered Nurse ====== --- Original Document --- 08/14/23 V1 PHARMACY CUSTOMER CARE MEDICATION RENEWAL: Date: August Division: [facility] referred by Pharmacy Call Center for medication renewal: Non-controlled/maintenan ce medication Medications requested: [id number] QUETIAPINE FUMARATE 100MG TAB Defer to specialty clinic To be mailed . Please review and renew if appropriate. *This note was generated by [facility] Pharmacy Customer Care. If you have any questions or need assistance, do not contact this author. Please refer all questions to your local, on-site pharmacy departments. /bridgett/ RHODA [place] CPhT Director Of Supply Chain, [place]/Pharmacy Customer Care Signed: 08/14/2023 22:52 Receipt Acknowledged By: 08/20/2023 16:32 /sabina OGLESBY DO Psychiatrist 08/17/2023 ADDENDUM STATUS: COMPLETED I received his voicemail- I left the number of the front sight attacher, and asked him to call to make an appointment with Dr. Oglesby. I also left my number for call back. /sabina NUNEZ Registered Nurse Signed: 08/17/2023 10:10 08/19/2023 ADDENDUM STATUS: COMPLETED I called and left another message with mu number, as well as the front sight attacher number, and asked him to call to make an appointment. I also asked him to call me to discuss medication. /sabina NUNEZ Registered Nurse Signed: 08/19/2023 14:14 08/20/2023 ADDENDUM STATUS: COMPLETED I received veterans voicemail and left another message asking for a call back. If I do not hear from him today, I will send a letter. /sabina NUNEZ Registered Nurse Signed: 08/20/2023 08:37 08/21/2023 ADDENDUM STATUS: UNSIGNED You may not VIEW this UNSIGNED Addendum. DEANNA OGLESBY [facility] [place] [facility] August 14, 2023 10:51 PM PHARMACY NOTE: LOCAL TITLE: V1 PHARMACY CUSTOMER CARE MEDICATION RENEWAL STANDARD TITLE: PHARMACY NOTE DATE OF NOTE: AUGUST 14, 2023@22:51 ENTRY DATE: AUGUST 14, 2023@22:51:40 AUTHOR: RHODA [place] EXP COSIGNER: URGENCY: STATUS: COMPLETED V1 PHARMACY CUSTOMER CARE MEDICATION RENEWAL Has ADDENDA Date: August Division: [facility] referred by Pharmacy Call Center for medication renewal: Non-controlled/maintenan ce medication Medications requested: [id number] QUETIAPINE FUMARATE 100MG TAB Defer to specialty clinic To be mailed . Please review and renew if appropriate. *This note was generated by [facility] Pharm[facility] Customer [facility]. If you have any questions or need assistance, do not contact this author. Please refer all questions to your local, on-site pharmacy departments. /sabina [place] CPhT Director Of Supply Chain, [place] Customer [facility] Signed: 08/14/2023 22:52 Receipt Acknowledged By: 08/20/2023 16:32 /sabina OGLESBY DO Psychiatrist 08/17/2023 ADDENDUM STATUS: COMPLETED Patient was last seen by me in April,. At that time, he was not prescribed quetiapine. He missed his last two appointments with me. Patrica, please try and contact to schedule a follow-up with me. In my experience he can be difficult to get ahold of. Thank you. /sabina OGLESBY DO Psychiatrist Signed: 08/17/2023 07:21 Receipt Acknowledged By: 08/21/2023 12:13 /sabina NUNEZ Registered Nurse 08/17/2023 ADDENDUM STATUS: COMPLETED I received his voicemail- I left the number of the front sight attacher, and asked him to call to make an appointment with Dr. Oglesby. I also left my number for call back. /sabina NUNEZ Registered Nurse Signed: 08/17/2023 10:10 08/19/2023 ADDENDUM STATUS: COMPLETED I called and left another message with mu number, as well as the front sight attacher number, and asked him to call to make an appointment. I also asked him to call me to discuss medication. /bridgett/ PATRICA NUNEZ Registered Nurse Signed: 08/19/2023 14:14 08/20/2023 ADDENDUM STATUS: COMPLETED I received [employer] voicemail and left another message asking for a call back. If I do not hear from him today, I will send a letter. /sabina NUNEZ Registered Nurse Signed: 08/20/2023 08:37 08/21/2023 ADDENDUM STATUS: COMPLETED Letter sent in an attempt to re-engage /sabina NUNEZ Registered Nurse Signed: 08/21/2023 12:14 RHODA [place] [facility]
--- OUTSIDE RECORDS SUMMARY | 2024-07-07 11:45 | XMS_ITS | Continuity of Care Document ---
Author Name [facility] Organization [facility] Care Team Providers Care Linux System Admin Name Role Phone [facility] Unavailable Unavailable Problems Combined list of problems from Department of Defense and Veterans Affairs facilities. It does not include entries that were removed or entered in error. 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 Condition May 31, 2021 Entered By: DEANNA OGLESBY Comment: reviewed [facility] [place] [facility] Opioid dependence Active Condition Oc 2019 Entered By: ROZINA BRYANT Comment: Opioid (Heroin) Use Disorder, SevereApr 2020 Entered By: DEANNA OGLESBY Comment: on methadone, prescribed by [facility] Sedative abuse Active Condition [facility] [place] [facility] Tobacco dependence Active Condition Jan 30, 2020 Entered By: ROZINA BRYANT Comment: Tobacco (Pipe Tobacco) Use Disorder, ModerateFeb 2021 Entered By: DEANNA OGLESBY Comment: reviewed [place] Diagnosis: ICD-10-CM F11.20 Opioid dependence, uncomplicated Active Diagnosis [place] Medications Combined list of outpatient medications from Department of Defense and Veterans Affairs facilities.Medications provided include 1) outpatient medications from the last 15 months, and 2) patient-reported medications. Medication Details Route Status Patient Instructions Prescription Expires Prescription Number Last Dispense Date Ordering Provider Order Date Order Qty Source HYDROXYZINE PAMOATE 50MG CAP TAKE ONE CAPSULE BY MOUTH ONCE DAILY NEEDED FOR SLEEP OR ANXIETY ORAL 04/15/2024 [id number] LARROW,BR JULIA 2023 30 [place] MELATONIN CAP/TAB TAKE BY MOUTH ORAL ACTIVE LARFANTASMA,BR JULIA 2021 [facility] [place] METHADONE HCL 10MG TAB TAKE SIX TABLETS BY MOUTH ONCE DAILY ORAL ACTIVE LARFANTASMA,BR JULIA 2020 [place] NALOXONE HCL 4MG/SPRAY SOLN,SPRAY, NASAL INSTILL 1 SPRAY ONE NOSTRIL ONE TIME NEEDED FOR OPIOID OVERDOSE CALL 911 WITH ADMINIST RATION. REPEAT WITH SECOND DEVICE IF SYMPTOMS RETURN NASAL 06/04/2024 [id number] LARFANTASMA,BR JULIA 2024 2 [place] NALOXONE HCL 4MG/SPRAY SOLN,SPRAY, NASAL INSTILL 1 SPRAY ONE NOSTRIL ONE TIME NEEDED FOR OPIOID OVERDOSE CALL 911 WITH ADMINIST RATION. REPEAT WITH SECOND DEVICE IF SYMPTOMS RETURN NASAL 05/15/2023 [id number] RENY,ROBINA JULIA 2023 2 [place] Encounters Combined list of: 1) Encounters from Department of Veterans Affairs facilities going backup to the last 18 months, not all [place] inpatient encounters are included; 2) Encounters from the Department of Defense facilities going backup to 280 months. Location Location Details Encounter Type Encounter Number Reason For Visit Attending Provider ADM Date DC Date Status Disposition Source [place] [facility] [place] [facility] Outpatient Encounter [id number] 04/14 [place] [facility] [place] [facility] O/P EST MOD 30 MIN [id number] Diagnos is: ICD-10- CM F11.20 Opioid depende nce, uncompl icated RENY,MIGUE AN 04/15 [place] [facility] [place] [facility] Outpatient Encounter [id number] 05/20 [place] [facility] [place] [facility] [place] [facility] Outpatient Encounter [id number] 05/20 [place] [facility] [place] [facility] En[facility] [id number] 05/27 [facility] [place] Outpatient Encounter [id number] [place] Outpatient Encounter [id number] 06[place] [facility] En[facility] [id number] 07/08 [facility] [place] En[facility] [id number] 08/13 [facility] [place] En[facility] [id number] 02/09 [facility] [place] Outpatient Encounter [id number] 05/05 [facility] [place] SYNCH AUDIO-ONLY EST LOW 20 [id number] Diagnos is: ICD-10- CM F11.20 Opioid depende nce, uncompl icated RENY,MIGUE AN 05/05 [facility] Social History Combined list of available smoking, tobacco, and other social history from Department of Defense and Veterans Affairs facilities. Social History Type Response Date Comment Sourc e Tobacco smoking status NHIS VA-TOBACCO USER EVERY DAY 05/31/2021 [place] History of tobacco use VA-TOBACCO USE WI 30 MIN OF WAKEUP 05/31/2021 [place] History of tobacco use VA-TOBACCO USER EVERY DAY 01/30/2020 [facility] [place] [facility] Plan of Care List of future care activities from Department of Veterans Affairs facilities. Additional future care activities may be listed in the Assessment and Plan section. Date/Time Care Activity Care Activity Detail Facili ty 08/08/2024 AMBULATORY - PSYCHIATRY [facility]
[2024-08-18 09:21] VITALS: BMI 35.7
--- NOTE | 2024-08-18 15:13 | HO.ANESPROP2 ---
HPI - Anesthesia Eval Consult details Narrative: 68yo M for Left Cataract Extraction IOL Insertion No previous cataract on record PMF Active Problems Active Problems: All Active Problems Preoperative clearance (Acute) Blurry vision (Acute) Hepatitis C (Acute) Mild recurrent major depression (Acute) Obesity (BMI 30.0-34.9) (Acute) Physical exam (Acute) Primary insomnia (Acute) Past Medical History Medical History Primary insomnia Family History Family History Mother Emphysema lung Cancer, Onset Age: 50 Father Blood clots Emphysema lung Family/Other Mental health disorder Substance use disorder Brother Cancer, Onset Age: 40 Surgical History Surgical History History of back surgery Social History Social History Housing: Apartment Alcohol intake: never Patient Tobacco Use Status: Former Tobacco user Tobacco use type: Pipe Cigarettes Per Day: 12 e-Cigarette/Vaping Use: Currently Using Second Hand Smoke Exposure: No Use of substances other than those prescribed or required for medical reasons: No Advance Directives: No Advance Directives Information Provided: No Advance Directives on File: No service: No Current occupational status: disabled Cognitive needs: No Hearing needs: No Vision needs: Yes (Glasses) Meds Allergies Allergy/AdvReac Type Severity Reaction Status Date / Time No Known Allergies [NKA] Allergy Verified 08/11/24 12:10 Exam Height,Weight and Vital Signs: Height 5 ft 8 in Weight 106.594 kg Assessment and Plan Assessment Anesthesia Assessment: Chart Reviewed
--- NOTE | 2024-08-22 12:22 | ECG_ITS ---
Test Reason : pre op Blood Pressure : */* mmHG Vent. Rate : 99 BPM Atrial Rate : 99 BPM P-R Int : 144 ms QRS Dur : 90 ms QT Int : 388 ms P-R-T Axes : 50 10 58 degrees QTcB Int : 497 ms Normal sinus rhythm Prolonged QT Abnormal ECG When compared with ECG of 05-Aug-2014 16:26, Vent. rate has increased by 34 bpm QT has lengthened Referred By: Erlin Rodriguez Electronically Signed By: Sonido Garcia
--- OUTSIDE RECORDS SUMMARY | 2024-08-22 12:44 | XMS_ITS | Continuity of Care Document ---
Author Name [facility] Organization [facility] Care Team Providers Care Production Statistical Clerk Name Role Phone [facility] Unavailable Unavailable Problems Combined list of problems from Department of Defense and Veterans Affairs facilities. It does not include entries that were removed or entered in error. Problem Status Onset Date Problem Type Date of Resolution Comments Source Anxiety disorder Active 04/06/19 21 Condition May 31, 2021 Entered By: DEANNA OGLESBY Comment: reviewed [place] [facility] [place] [facility] Chronic low back pain Active Condition Nov 28, 2019 Entered By: FREDO NOGUEIRA Comment: L4-5 spinal fusion surgery in 1994 [place] [facility] [place] [facility] Housing adequate Active Condition 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 Condition May 31, 2021 Entered By: DEANNA OGLESBY Comment: reviewed [facility] [place] [facility] Opioid dependence Active Condition Oc 2019 Entered By: ROZINA BRYANT Comment: Opioid (Heroin) Use Disorder, SevereApr 2020 Entered By: DEANNA OGLESBY Comment: on methadone, prescribed by [facility] Sedative abuse Active Condition [place] [facility] [place] [facility] Tobacco dependence Active Condition Jan 30, 2020 Entered By: ROZINA BRYANT Comment: Tobacco (Pipe Tobacco) Use Disorder, ModerateFeb 2021 Entered By: DEANNA OGLESBY Comment: reviewed [place] Diagnosis: ICD-10-CM F11.20 Opioid dependence, uncomplicated Active Diagnosis [place] Medications Combined list of outpatient medications from Department of Defense and Veterans Affairs facilities.Medications provided include 1) outpatient medications from the last 15 months, and 2) patient-reported medications. Medication Details Route Status Patient Instructions Prescription Expires Prescription Number Last Dispense Date Ordering Provider Order Date Order Qty Source MELATONIN CAP/TAB TAKE BY MOUTH ORAL ACTIVE ROBINA OGLESBY 2021 [place] [facility] [place] [facility] METHADONE HCL 10MG TAB TAKE SIX TABLETS BY MOUTH ONCE DAILY ORAL ACTIVE ROBINA OGLESBY JULIA 2020 [facility] IELD NALOXONE HCL 4MG/SPRAY SOLN,SPRAY, NASAL INSTILL 1 SPRAY ONE NOSTRIL ONE TIME NEEDED FOR OPIOID OVERDOSE CALL 911 WITH ADMINIST RATION. REPEAT WITH SECOND DEVICE IF SYMPTOMS RETURN NASAL 06/04/2024 [id number] ROBINA OGLESBY JULIA 2024 2 IELD Encounters Combined list of: 1) Encounters from Department of Veterans Affairs facilities going backup to the last 18 months, not all [place] inpatient encounters are included; 2) Encounters from the Department of [facility] facilities going backup to 280 months. Location Location Details Encounter Type Encounter Number Reason For Visit Attending Provider ADM Date DC Date Status Disposition Source [facility] [place] [facility] Outpatient Encounter [id number] 04/14 [place] [facility] [place] [facility] [place] O/P EST MOD 30 MIN [id number] Diagnos is: ICD-10- CM F11.20 Opioid depende nce, uncompl icated ROBINA OGLESBYI AN 04/15 [facility] [place] Outpatient Encounter [id number] 05/20 [facility] [place] [facility] [place] Encounter [id number] 05/20 [facility] [place] [facility] [place] [facility] Outpatient Encounter [id number] 05/27 [facility] [place] [facility] [place] Outpatient Encounter [id number] [facility] [place] Outpatient Encounter [id number] 06/17 [facility] [place] Encounter [id number] 07/08 [facility] [place] [facility] [facility] [place] Encounter [id number] 08/13 [facility] [place] [facility] [place] Encounter [id number] 02/09 [facility] [place] [facility] [place] Outpatient Encounter [id number] 05/05 [facility] [place] SYNCH AUDIO-ONLY EST LOW 20 [id number] Diagnos is: ICD-10- CM F11.20 Opioid depende nce, uncompl icated RENY,MIGUE AN 05/05 [facility] [place] Outpatient Encounter [id number] 08/08 [facility] [place] [facility] Out[facility] Encounter [id number] 08/08 [facility] [place] [facility] [place] Outpatient Encounter [id number] 08/15 [facility] [place] [facility] Outpatient Encounter [id number] 08/19 [facility] [place] [facility] Social History Combined list of available smoking, tobacco, and other social history from Department of Defense and Veterans Affairs facilities. Social History Type Response Date Comment Sour e Tobacco smoking status NHIS VA-TOBACCO USER EVERY DAY 05/31/2021 [place] History of tobacco use VA-TOBACCO USE WI 30 MIN OF WAKEUP 05/31/2021 [place] History of tobacco use VA-TOBACCO USER EVERY DAY 01/30/2020 [facility] [place] [facility]
--- OUTSIDE RECORDS SUMMARY | 2024-08-22 12:44 | XMS_ITS ---
Author Name [facility] [place] [facility] [place] Address [address] [place] [address] Care Team Providers Care Launch Leader Name Role Phone TA BROOKS Primary Care [...] STAND TOMAS SELF Apr 06, [phone] [id number] [phone] HONEYJAMESAaliyah HEMAL PATIENT [employer] FEPRX PLAN PRESCRIPT ION CAREM ARK FEPRX Apr 06, 2010 [id number] HEMAL NAVA PATIENT [employer] (WNR) MEDICARE ADVANTAGE [employer] ([facility]) Nov 04, 2022 [id number] [phone] HEMAL NAVA PATIENT MEDICARE (WNR) MEDICARE (M) PART A Apr 06, 2004 PART A [id number] [phone] HEMAL NAVA PATIENT Selected Encounter This section includes the information on record at [place] for the Encounter. Date/Time Encounter Type Encounter Description Reason Pro vider Source August 19, 2024 01:21 PM Outpatient Encounter [facility] Encounter Template Text not used by [place] Social History: Smoking Status (Most current) and Tobacco Use (All prior to encounter date) This section includes the most current, and the historical, smoking and tobacco- related health factors from the [place] facility where the Encounter took place. Current Smoking Status This section includes the most current smoking, or tobacco-related health factor, from the [place] facility where the Encounter took place. Date/Time Current Smoking Status Comment Facil ity Jan 30, 2020 01:00 PM VA-TOBACCO USER EVERY DAY [facility] Tobacco Use History This section includes a history of the smoking, or tobacco-related health factors, that were collected on or before the date of the Encounter. The data comes from the [place] facility where the Encounter took place. 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 Encounter Notes: All associated encounter notes This section contains the clinical notes associated to the Encounter. Date/Time Encounter Note(s) Provider Source August 19, 2024 01:21 PM ADMINISTRATIVE NOT E: LOCAL TITLE: ADMINISTRATIVE NOTE STANDARD TITLE: ADMINISTRATIVE NOTE DATE OF NOTE: AUGUST 19, 2024@13:21 ENTRY DATE: AUGUST 19, 2024@13:21:52 AUTHOR: SHAVONNE EDUARDO EXP COSIGNER: URGENCY: STATUS: COMPLETED keno writer/runner called to offer rs'ing options for NS'd MH appt. states he is having eye surgery coming up and will not be able to do MH appt. states he will call at a later time. rtc to be dispositioned at this time. /bridgett/ SHAVONNE EDUARDO ADVANCED ACCOUNTING DIRECTOR Signed: 08/19/2024 13:22 Receipt Acknowledged By: 08/19/2024 13:54 /es/ DEANNA OGLESBY DO Psychiatrist SHAVONNE EDUARDO
--- OUTSIDE RECORDS SUMMARY | 2024-08-22 12:44 | XMS_ITS | Encounter Summary ---
Author Name [facility] [place] [facility] [place] Address [address] [place] [address] Care Team Providers Care Cylinder Inspector Name Role Phone TA BROOKS Primary Care [...] Name Patient's Relationship to Policy Pelletier NIKO [facility] FEDERAL PREFERRED PROVIDER ORGANIZAT ION (PPO) STAND TOMAS SELF Apr 06, [phone] [id number] [phone] HONEYJAMESAaliyah LOWELL PATIENT [employer] FEPRX PLAN PRESCRIPT ION CAREM ARK FEPRX Apr 06, 2010 [id number] HONEYJAMESAaliyah LOWELL PATIENT [employer] [facility] (WNR) MEDICARE ADVANTAGE [facility] (WNR) Nov 04, 2022 [id number] [phone] HONEYJAMESAaliyah LOWELL PATIENT MEDICARE (WNR) MEDICARE (M) PART A Apr 06, 2004 PART A [id number] LOWELL NAVA PATIENT Selected Encounter This section includes the information on record at [place] for the Encounter. Date/Time Encounter Type Encounter Description Reason Pro vider Source August 15, 2024 01:00 PM Outpatient Encounter [facility] Encounter Template Text not used by [place] Social History: Smoking Status (Most current) and Tobacco Use (All prior to encounter date) This section includes the most current, and the historical, smoking and tobacco- related health factors from the [facility] where the Encounter took place. Current Smoking Status This section includes the most current smoking, or tobacco-related health factor, from the [place] facility where the Encounter took place. Date/Time Current Smoking Status Comment Facil ity May 31, 2021 03:30 PM VA-TOBACCO USER EVERY DAY [place] Tobacco Use History This section includes a history of the smoking, or tobacco-related health factors, that were collected on or before the date of the Encounter. The data comes from the [facility] where the Encounter took place. 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 Date/Time Encounter Note(s) Provider Source August 15, 2024 01:13 PM CLERICAL NOTE: LOCAL TITLE: APPOINTMENT NO SHOW STANDARD TITLE: CLERICAL NOTE DATE OF NOTE: AUGUST 15, 2024@13:13 ENTRY DATE: AUGUST 15, 2024@13:13:45 AUTHOR: DEANNA OGLESBY COSIGNER: URGENCY: STATUS: COMPLETED Patient Name: LOWELL NAVA Patient SSN: [id number] Date and time of Appointment No show : 08/15/24 13:00 PATIENT PHONE - PHONE NUMBER [CELLULAR] - [phone] Patient's medical record was reviewed. Follow-up actions were determined and initiated: Please check/complete as applies: [X]Telephoned Directly [ ]Re-scheduled for next available appt [X]Sent a N0-show letter ( must call for appointment) [ ]Other (Emergent/Overbook, etc.): Additional Comments: Lowell did not show for his appointment with me today. I called the [id number] x2 but there was no answer (cell no longer belongs to him). I left a HIPAA-compliant message with instructions for rescheduling. A letter will be sent. Future Clinic Visits No data available /bridgett/ DEANNA OGLESBY DO Psychiatrist Signed: 08/15/2024 13:16 DEANNA OGLESBYFIELD
== END 2024-08-22 12:18 | disposition home or self-care (01) ==
LOC: HO.SSS 12:17
PROVIDERS: PCP Internal Medicine; Visit Provider Ophthalmology
PROC: (CPT 66985; principal; 2024-12-12 09:00)
DX: Z01.818 Encounter for other preprocedural examination (principal); H25.12 Age-related nuclear cataract, left eye; R94.31 Abnormal electrocardiogram [ECG] [EKG]
CPT/HCPCS: 93005

== ENCOUNTER → 2024-08-22 12:22 | Outpatient (BNV) | payer MEDICARE, SELFPAY | PROVIDERS: PCP Internal Medicine; Visit Provider Internal Medicine Cardiovascular Disease | DX: R94.31 Abnormal electrocardiogram [ECG] [EKG] (principal); Z01.810 Encounter for preprocedural cardiovascular examination | CPT/HCPCS: 93010 ==

== ENCOUNTER 2024-09-29 15:18 | Outpatient (AMB) | payer MEDICARE, SELFPAY ==
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
== END 2024-09-29 16:24 | disposition home or self-care (01) ==
LOC: HO.HOP 15:18
PROVIDERS: PCP Internal Medicine; Visit Provider Clinical Nurse Specialist Psychiatric/Mental Health
DX: F33.0 Major depressive disorder, recurrent, mild (principal); F41.1 Generalized anxiety disorder
CPT/HCPCS: 90792

== ENCOUNTER → 2024-09-29 15:18 | Outpatient (BNVA) | payer MEDICARE, SELFPAY | PROVIDERS: PCP Internal Medicine; Visit Provider Clinical Nurse Specialist Psychiatric/Mental Health | DX: F33.0 Major depressive disorder, recurrent, mild (principal); F41.1 Generalized anxiety disorder | CPT/HCPCS: 90792 ==

== ENCOUNTER 2024-11-18 | Outpatient (REF) | payer MEDICARE, SELFPAY ==
[2024-11-19 15:06] LABS: Appearance Urine Clear; Glucose Urine UA Negative (Negative); PH 6.0 (5.0-9.0); Specific Gravity - Urine 1.020 (1.005-1.025); UMIC TRIGGER UACC YES
[2024-11-19 15:18] LABS: UACC Culture Trigger YES
== END 2024-11-18 00:01 | disposition home or self-care (01) ==
LOC: HO.LNP
DX: Z01.818 Encounter for other preprocedural examination (principal); H53.8 Other visual disturbances; B19.20 Unspecified viral hepatitis C without hepatic coma; F33.0 Major depressive disorder, recurrent, mild; E66.9 Obesity, unspecified
CPT/HCPCS: 81001; 81003; 87086

== ENCOUNTER 2024-11-18 10:34 | Outpatient (AMB) | payer MEDICARE, SELFPAY ==
--- OUTSIDE RECORDS SUMMARY | 2024-09-29 13:45 | XMS_ITS | Continuity of Care Document ---
Author Name [facility] Organization [facility] Care Team Providers Care Library Historian Name Role Phone [facility] Unavailable Unavailable Problems Combined list of problems from Department of Defense and Veterans Affairs facilities. It does not include entries that were removed or entered in error. 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 Condition May 31, 2021 Entered By: DEANNA OGLESBY Comment: reviewed [facility] [place] [facility] Opioid dependence Active Condition Oc 2019 Entered By: ROZINA BRYANT Comment: Opioid (Heroin) Use Disorder, SevereApr 2020 Entered By: DEANNA OGLESBY Comment: on methadone, prescribed by [facility] Sedative abuse Active Condition [place] [facility] [place] [facility] Tobacco dependence Active Condition Jan 30, 2020 Entered By: ROZINA BRYANT Comment: Tobacco (Pipe Tobacco) Use Disorder, ModerateFeb 2021 Entered By: DEANNA OGLESBY Comment: reviewed [place] Diagnosis: ICD-10-CM F11.20 Opioid dependence, uncomplicated Active Diagnosis [place] Medications Combined list of outpatient medications from Department of Defense and Veterans Affairs facilities.Medications provided include 1) outpatient medications from the last 15 months, and 2) patient-reported medications. Medication Details Route Status Patient Instructions Prescription Expires Prescription Number Last Dispense Date Ordering Provider Order Date Order Qty Source MELATONIN CAP/TAB TAKE BY MOUTH ORAL ACTIVE ROBINA OGLESBY 2021 [facility] [place] [facility] METHADONE HCL 10MG TAB TAKE SIX TABLETS BY MOUTH ONCE DAILY ORAL ACTIVE ROBINA OGLESBY JULIA 2020 [facility] IELD NALOXONE HCL 4MG/SPRAY SOLN,SPRAY, NASAL INSTILL 1 SPRAY ONE NOSTRIL ONE TIME NEEDED FOR OPIOID OVERDOSE CALL 911 WITH ADMINIST RATION. REPEAT WITH SECOND DEVICE IF SYMPTOMS RETURN NASAL 06/04/2024 [id number] ROBINA OGLESBY JULIA 2024 2 IELD Encounters Combined list of: 1) Encounters from Department of Veterans Affairs facilities going backup to the last 18 months, not all [place] inpatient encounters are included; 2) Encounters from the Department of [facility] facilities going backup to 280 months. Location Location Details Encounter Type Encounter Number Reason For Visit Attending Provider ADM Date DC Date Status Disposition Source [facility] [place] [facility] Outpatient Encounter [id number] 04/14 [place] [facility] [place] [facility] [place] O/P EST MOD 30 MIN [id number] Diagnos is: ICD-10- CM F11.20 Opioid depende nce, uncompl icated ROBINA OGLESBYI AN 04/15 [facility] [place] [facility] Out[facility] Encounter [id number] 05/20 [facility] [place] [facility] [place] [facility] Out[facility] Encounter [id number] 05/20 [facility] [place] [facility] [place] [facility] Outpatient Encounter [id number] 05/27 [facility] [place] [facility] [place] Outpatient Encounter [id number] [facility] [place] Outpatient Encounter [id number] 06/17 [facility] [place] [facility] Encounter [id number] 07/08 [facility] [place] [facility] [place] [facility] En[facility] [id number] 08/13 [facility] [place] [facility] [place] [facility] Encounter [id number] 02/09 [facility] [place] [facility] [place] Outpatient Encounter [id number] 05/05 [facility] [place] SYNCH AUDIO-ONLY EST LOW 20 [id number] Diagnos is: ICD-10- CM F11.20 Opioid depende nce, uncompl icated RENY,MIGUE AN 05/05 [facility] [place] Outpatient Encounter [id number] 08/08 [facility] [place] [facility] Out[facility] Encounter [id number] 08/08 [facility] [place] [facility] [place] Outpatient Encounter [id number] 08/15 [facility] [place] [facility] Outpatient Encounter [id number] 08/19 [facility] [place] [facility] Social History Combined list of available smoking, tobacco, and other social history from Department of Defense and Veterans Affairs facilities. Social History Type Response Date Comment Sour e Tobacco smoking status NHIS VA-TOBACCO USER EVERY DAY 05/31/2021 [place] History of tobacco use VA-TOBACCO USE WI 30 MIN OF WAKEUP 05/31/2021 [place] History of tobacco use VA-TOBACCO USER EVERY DAY 01/30/2020 [facility] [place] [facility]
[2024-11-18 10:36] VITALS: BP 122/80; PULSE 67; RESP 18; TEMP 36.1; O2SAT 94; BMI 35.8
--- NOTE | 2024-11-18 10:36 | MHC.PC.OV ---
Vital Signs 11/18/24 10:36 Height 5 ft 8 in Weight 235 lb 8 oz BMI 35.8 BP 122/80 Blood Pressure Location Lt brachial Position Sitting Respiration 18 Pulse 67 Pulse Source Pulse Oximeter Temp 97 F Temp Source Temporal Artery Scan Pulse Oximetry (%) 94 Oxygen Delivery Method Room Air Intake Visit Reasons: preop for cataracts Community Case Manager Required: No Accompanied by: Self / Same As Patient Allergies No Known Allergies (NKA) Allergy (Verified 11/18/24 10:48) Medication List - Last Reconciled 11/18/24 by TONY Ruiz mirtazapine (Remeron) 15 mg PO BEDTIME quetiapine ER (Seroquel XR) 400 mg PO BEDTIME 30 days Tobacco use date assessed: 11/18/24 Fall risk assessment: 2 + Falls in past year Last assessed Fall Risk: 11/18/24 Dental Screening Dental Screen Date: 11/18/24 Did you have a dental visit in the last 12 months?: No Did you have a dental problem in the last 6 months where you did not have access to dental care?: No Was dental information given to patient?: No HPI preop for cataracts HPI Details The patient presenting for preop clearance. Patient of Dr. Yu, was last seen in office on 08/11/2024 for preoperative clearance for the same upcoming surgery, but he did not complete the required blood work. Surgery: Cataract surgery on both eyes. The patient is scheduled for eye surgery, with the right eye procedure planned for November 28 and the left eye for December 12. The surgeries have been delayed due to incomplete pre-operative evaluations prior. The patient is planning on going to get his blood work an EKG completed after this visit. EKG was completed for his previous surgery date. This showed that the patient had a prolonged QTC and was recommended to decrease his 400 mg of Seroquel to 300 mg. The patient reports that due to financial hardship he is not able to throughout the 400 mg in pay for a new prescription. Discussed with the patient that he may break to 400 mg in the half and only take 200 mg until they run out then he could be switched to the 300 mg. The patient denied smoking cigarette but reports that his vaping, which he thinks it is the equivalent of half a pack of cigarettes a day. Surgeon/location: Dr. Hancock at [facility], [place], [place] Anesthesia: Mac. Patient reports previous back surgery under general anesthesia that he tolerated well. The patient will be getting a less potent anesthesia for this procedure. The patient denies any clotting disorder and he is not on any anticoagulants. Past medical history significant for hepatitis-C, depression, insomnia, obesity, anxiety, obesity The patient denies shortness of breath, chest pain, heart palpitation, dizziness No abdominal pain/change in bowel habits No urinary symptoms PFSH Medical History Primary insomnia Surgical History History of back surgery Family History Mother Emphysema lung Cancer, Onset Age: 50 Father Blood clots Emphysema lung Family/Other Mental health disorder Substance use disorder Brother Cancer, Onset Age: 40 Social History Housing: Apartment Alcohol intake: never Patient Tobacco Use Status: Former Tobacco user Tobacco use type: Pipe Cigarettes Per Day: 12 e-Cigarette/Vaping Use: Currently Using Second Hand Smoke Exposure: No service: No Current occupational status: disabled Cognitive needs: No Hearing needs: No Vision needs: Yes (Glasses) Questionnaire PHQ-9 Over the last 2 weeks, how often have you been bothered by any of the following problems? 1. Little interest or pleasure in doing things: nearly every day 2. Feeling down, depressed, or hopeless: nearly every day 3. Trouble falling or staying asleep, or sleeping too much: more than half the days 4. Feeling tired or having little energy: more than half the days 5. Poor appetite or overeating: several days 6. Feeling bad about yourself - or that you are a failure or have let yourself or your family down: several days 7. Trouble concentrating on things, such as reading the newspaper or watching television: not at all 8. Moving or speaking so slowly that other people could have noticed. Or the opposite - being so fidgety or restless that you have been moving around a lot more than usual: not at all 9. Thoughts that you would be better off or of hurting yourself in some way: not at all Total score: 12 Depression Screening Interpretation: Positive Depression Screening Follow-up: Existing condition, In treatment, Community Mental Health Worker F/U and Follow-up Visit Requested Depression Screening Done: Yes 92277 - PHQ-9 Billing: Yes Source: Developed by Drs. Taov Myrick, Sheeba Pike, Phil Clements and colleagues, with an educational dexter from [email or web address] Thrive Questionnaire Date Thrive assessed: 11/18/24 AUDIT C Alcohol Use Questionnaire (AUDIT-C) 1. How often do you have a drink containing alcohol?: Never Total Score: 0 Score Reviewed/Action Taken: No MASSIEL-7 AMB Questionnaire MASSIEL-7 Date MASSIEL - 7 assessed: 11/18/24 Source: Developed by Drs. Tavo Myrick, Sheeba Pike, Phil Clements and colleagues, with an educational dexter from [email or web address] Review of Systems Const Denies headache(s) Eyes Reports blurry vision ENT Denies vertigo, Denies dizziness, Denies headache(s) and Denies sore throat Card Denies chest pain, Denies leg edema and Denies lightheadedness Resp Denies cough, Denies hemoptysis and Denies wheezing GI Denies abdominal pain, Denies melena, Denies constipation, Denies diarrhea and Denies vomiting Denies dysuria, Denies urinary frequency and Denies urinary urgency Musc Denies arthralgias, Denies joint swelling, Denies numbness and Denies tingling Neuro Denies Abnormal speech present, Denies behavioral changes, Denies vertigo, Denies dizziness, Denies headache(s), Denies memory loss, Denies numbness and Denies tingling Psych Reports anxiety, Denies behavioral changes, Denies depression, Denies memory loss and Denies panic attacks Javi/Lymph Denies easy bleeding and Denies easy bruising Aller/Immun Denies wheezing Physical exam (Primary Care) Vital Signs: Last Vital Signs Temp 97 F 11/18/24 10:36 Pulse 67 11/18/24 10:36 Resp 18 11/18/24 10:36 BP 122/80 11/18/24 10:36 Pulse Ox 94 11/18/24 10:36 Oxygen Delivery Method Room Air 11/18/24 10:36 BMI result Body Mass Index 35.8 Tobacco/Smoking Status: Tobacco use Status Tobacco use date assessed 11/18/24 11/18/24 10:45 Patient Tobacco Use Status Former Tobacco user 11/18/24 10:45 Tobacco use type Pipe 11/18/24 10:45 e-Cigarette/Vaping Use Currently Using 11/18/24 10:45 PHQ-9: PHQ-9 Score PHQ-9: Total score 12 11/18/24 20:16 Depression Screening Interpretation: Positive Depression Screening Follow-up: Existing condition, In treatment, Community Mental Health Worker F/U and Follow-up Visit Requested Thrive Assessment: Date of Thrive Assessment Date Thrive assessed 11/18/24 11/18/24 10:45 Const General: healthy appearing, no acute distress, alert and awake Nutritional Appearance: well nourished Orientation/consciousness: oriented to person, oriented to place and oriented to time HENMT Ears: TM's normal bilaterally General nose exam: Normal nasal mucous membranes and turbinates present Eyes Conjunctivae: conjunctivae normal Sclerae: sclerae normal Pupils: Equal, round and reactive pupils present Neck Neck: Yes no lymphadenopathy and Yes no JVD Thyroid: Thyroid normal Carotids: no bruits Resp Effort & Inspection: normal respiratory effort and not tachypneic Auscultation: no crackles, no rales, no rhonchi and no wheezes Cardio Rate: regular rate Rhythm: regular rhythm Heart sounds: no murmurs and normal S1 and S2 GI Palpation (GI): Soft to palpation, nontender, no hepatomegaly and no splenomegaly Auscultation: normal bowel sounds General: Yes no CVA tenderness Back/Spine/Pelvis Back: no CVA tenderness Skin General skin exam: no rashes or lesions noted and dry skin Neuro General: oriented to person, oriented to place and oriented to time Cranial nerves: Yes Equal, round and reactive pupils present Speech: No Abnormal speech present Gait exam (Neuro): Normal gait present Motor exam (neuro): no tremor noted Extrem Right upper extremity: full ROM Left upper extremity: full ROM Right lower extremity: full ROM; no edema Left lower extremity: full ROM; no edema Psych Mental Status: mental status grossly normal Speech and movement: Normal speech and movement present Affect: normal affect Attitude: cooperative Thought process: Normal thought process present Results Reviewed Results Reviewed: Laboratory Tests 11/18/24 11:56 WBC 6.2 RBC 5.20 Hgb 16.3 Hct 48.5 MCV 93.3 MCH 31.3 MCHC 33.6 RDW 12.9 Plt Count 132 L MPV 11.3 Immature Gran % (Auto) 0.2 Neut % (Auto) 50.4 Lymph % (Auto) 36.5 Sodium 136 Potassium 4.2 Chloride 104 Carbon Dioxide 24 Anion Gap 12 BUN 12 Creatinine 0.66 Estimated GFR > 60 Random Glucose 107 Estimat Average Glucose 114 Hemoglobin A1c % 5.6 Calcium 8.7 Total Bilirubin 0.5 AST 94 H ALT 77 H Alkaline Phosphatase 121 H Total Protein 7.8 Albumin 3.6 TSH 2.11 Coding Level of Care Code Est Pt Level 4 (43892) Diagnoses Preoperative clearance Z01.818 Blurry vision H53.8 MASSIEL (generalized anxiety disorder) F41.1 Obesity (BMI 30.0-34.9) E66.9 Chronic hepatitis C without hepatic coma B18.2 Viral hepatitis chronicity: chronic Hepatic coma status: without hepatic coma Primary insomnia F51.01 Additional Codes PHQ-9 - 91227 - PHQ-9 Billing: Yes ([id number]) Time Spent (min) 41 Assessment & Plan Assessment & Plan (1) Preoperative clearance: Code(s): Z01.818 - Encounter for other preprocedural examination Category: Medical Plan: Regarding preop clearance, the patient is at acceptable risk for proposed surgery. Reviewed with the patient that no surgery is completely free of risk and that this examination is to assist the surgeon in reviewing informed consent. The patient labs an EKG are within appropriate ranges (2) Blurry vision: Code(s): H53.8 - Other visual disturbances Category: Medical Plan: Plans for cataract surgery (3) MASSIEL (generalized anxiety disorder): Code(s): F41.1 - Generalized anxiety disorder Category: Medical Plan: Reports anxiety related to health conditions Encouraged CBT Continue Remeron 15 mg at bedtime (4) Obesity (BMI 30.0-34.9): Code(s): E66.9 - Obesity, unspecified Category: Medical Plan: Discussed lifestyle modifications including dietary changes and physical activity (5) Hepatitis C: Code(s): B19.20 - Unspecified viral hepatitis C without hepatic coma Category: Medical Qualifiers: Viral hepatitis chronicity: chronic Hepatic coma status: without hepatic coma Qualified Code(s): B18.2 - Chronic viral hepatitis C Plan: The patient will undergo an ultrasound as part of the management plan for Hepatitis C, and medication will be initiated to address the condition. (6) Primary insomnia: Code(s): F51.01 - Primary insomnia Category: Medical Plan: Reinforced sleep hygiene-due to prolonged QTC that is most likely caused by the Seroquel 400 mg at bedtime Plans to decrease Seroquel 400 mg to 300 mg has been delayed due to the patient financial hardship. Patient does not want to waste to 400 mg tablets. Encouraged the patient to break these in half and take 200 mg until they completed Orders: Orders Complete Blood Count Auto Diff Today Z01.818 - Encounter for other preprocedural examination Comprehensive Met. Panel Today Z01.818 - Encounter for other preprocedural examination TSH reflex Free T4 Today Z01.818 - Encounter for other preprocedural examination UA CC w/rflx Micro + Cult Today Z01.818 - Encounter for other preprocedural examination Hemoglobin A1c Today Z01.818 - Encounter for other preprocedural examination Prothrombin Time INR Today Z01.818 - Encounter for other preprocedural examination ECG 12 lead EKG Today Z01.818 - Encounter for other preprocedural examination
== END 2024-11-18 11:14 | disposition home or self-care (01) ==
LOC: HO.HMCH 10:34
PROVIDERS: PCP Internal Medicine
DX: B18.2 Chronic viral hepatitis C (principal); E66.9 Obesity, unspecified; Z68.35 Body mass index [BMI] 35.0-35.9, adult; H53.8 Other visual disturbances; Z01.818 Encounter for other preprocedural examination; F41.1 Generalized anxiety disorder; F51.01 Primary insomnia

== ENCOUNTER → 2024-11-18 10:34 | Outpatient (REF) | payer MEDICARE, SELFPAY ==
--- NOTE | 2024-11-18 11:34 | ECG_ITS ---
Test Reason : preop24 Blood Pressure : */* mmHG Vent. Rate : 67 BPM Atrial Rate : 67 BPM P-R Int : 174 ms QRS Dur : 92 ms QT Int : 430 ms P-R-T Axes : 63 1 64 degrees QTcB Int : 454 ms Normal sinus rhythm Normal ECG When compared with ECG of 22-Aug-2024 12:29, No significant change was found Referred By: Erlin Rodriguez Electronically Signed By: Sonido Garcia
[2024-11-18 11:57] LABS: MANUAL DIFF FLAG NO
[2024-11-18 13:44] LABS: Hematocrit 48.5 % (42.0-52.0); Hemoglobin 16.3 g/dl (14.0-18.0); Imm Gran Abs Auto 0.01 X10*3/uL (0.00-0.03); Imm Gran Pct Auto 0.2 % (0.0-0.4); Lymphocytes Absolute Auto 2.3 X10*3/uL (1.2-4.9); Mean Corpuscular HGB Conc 33.6 g/dl (31.0-36.0); Mean Corpuscular Hemoglobin 31.3 pg (27.0-33.0); Mean Corpuscular Volume 93.3 fL (80.0-98.0); NRBC Abs Auto 0.000 X10*3/uL (0.0-0.012); NRBC Pct Auto 0.0 /100WBC (0.0-0.2); Platelet Count 132 X10*3/uL (160-400); Red Blood Count 5.20 X10*6/uL (4.60-5.80); White Blood Count 6.2 X10*3/uL (4.8-10.8)
[2024-11-18 13:46] LABS: INTERNATIONAL NORM RATIO 1.0 (0.9-1.1); Prothrombin Time 11.3 SEC (10.9-12.4)
[2024-11-18 13:53] LABS: Hemoglobin A1C 155.3688 umol/L; Total Hemoglobin (HGBA1C) 4176.1385 umol/L
[2024-11-18 14:35] LABS: Alanine Aminotransferase 77 U/L (0-40); Albumin Level 3.6 g/dL (3.5-5.0); Alkaline Phosphatase 121 U/L (39-117); Anion Gap 12 (12-20); Aspartate Amino Transferase 94 U/L (5-37); Blood Urea Nitrogen 12 mg/dL (9-16); Calcium 8.7 mg/dL (8.4-10.2); Carbon Dioxide 24 mmol/L (22-29); Chloride 104 mmol/L (96-108); Estimated Glomerular Filt Rate > 60; Potassium 4.2 mmol/L (3.3-5.1); Sodium 136 mmol/L (135-145); Total Protein 7.8 g/dL (6.5-8.0)
== END ==
LOC: HO.CARD 10:34
PROVIDERS: Absent Provider Internal Medicine; PCP Internal Medicine
DX: Z01.818 Encounter for other preprocedural examination (principal); B19.20 Unspecified viral hepatitis C without hepatic coma; F33.0 Major depressive disorder, recurrent, mild; H26.9 Unspecified cataract; F17.290 Nicotine dependence, other tobacco product, uncomplicated; F41.1 Generalized anxiety disorder; E66.9 Obesity, unspecified; B18.2 Chronic viral hepatitis C; F51.01 Primary insomnia; Z68.35 Body mass index [BMI] 35.0-35.9, adult
CPT/HCPCS: 36415; 80053; 83036; 84443; 85025; 85610; 93005; 96127; 99212

== ENCOUNTER → 2024-11-18 11:34 | Outpatient (BNV) | payer MEDICARE, SELFPAY | PROVIDERS: Absent Provider Internal Medicine; PCP Internal Medicine; Visit Provider Internal Medicine Cardiovascular Disease | DX: Z01.810 Encounter for preprocedural cardiovascular examination (principal) | CPT/HCPCS: 93010 ==

== ENCOUNTER 2024-11-28 08:29 | Day surgery (SDC) | payer MEDICARE, SELFPAY ==
[2024-08-18 09:44] VITALS: BMI 35.7
[2024-11-28 09:44] VITALS: BP 128/83; PULSE 87; RESP 20; TEMP 36.6; O2SAT 94
[2024-11-28] MEDS: Tropicamide 1 % Ophth Sol 3 ML BTL 1 DROP EYE-RIGHT ×3 (10:04→10:06)
[2024-11-28] MEDS: Phenylephrine HCL 2.5% Oph SoL 2 ML BOTTLE 1 DROP EYE-RIGHT ×3 (10:04→10:06)
[2024-11-28] MEDS: Tetracaine HCl/PF 0.5% Oph Sol 4 ML DROPS 1 DROP EYE-RIGHT (10:04)
[2024-11-28] MEDS: Cyclopentolate 1 % Ophth Sol 2 ML DRPBTL 1 DROP EYE-RIGHT ×3 (10:05→10:06)
[2024-11-28] MEDS: Ketorolac Tromethamine 0.5% Op 5 ML DROPS 1 DROP EYE-RIGHT ×3 (10:05→10:06)
[2024-11-28] MEDS: Lactated Ringers 500 ML 50 ML IV (10:16)
--- NOTE | 2024-11-28 10:23 | HO.ANESPROP2 ---
[facility] Active Problems Active Problems: All Active Problems (Updated 11/28/24 @ 08:38 by Yanique Nash RN) MASSIEL (generalized anxiety disorder) (Acute) Preoperative clearance (Acute) Blurry vision (Acute) Hepatitis C (Acute) Mild recurrent major depression (Acute) Obesity (BMI 30.0-34.9) (Acute) Physical exam (Acute) Primary insomnia (Acute) Past Medical History Medical History (Updated 11/28/24 @ 08:38 by Yanique Nash RN) Depression Hepatitis C MASSIEL (generalized anxiety disorder) Primary insomnia Family History Family History Mother Emphysema lung Cancer, Onset Age: 50 Father Blood clots Emphysema lung Family/Other Mental health disorder Substance use disorder Brother Cancer, Onset Age: 40 Family history of problems with anesthesia: No Surgical History Surgical History History of back surgery History of Problems with Anesthesia: No Social History Social History Housing: Apartment Alcohol intake: never Patient Tobacco Use Status: Former Tobacco user Tobacco use type: Smokeless Tobacco Cigarettes Per Day: 12 e-Cigarette/Vaping Use: Currently Using Second Hand Smoke Exposure: No Use of substances other than those prescribed or required for medical reasons: No 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 Are you DNR?: No Advance Directives: No Advance Directives Information Provided: Yes Advance Directives on File: No service: No Current occupational status: disabled Cognitive needs: No Hearing needs: No Vision needs: Yes (Glasses) Meds Allergies Allergy/AdvReac Type Severity Reaction Status Date / Time No Known Allergies (NKA) Allergy Verified 11/18/24 10:48 Active Medications: Current Medications Lactated Ringer's (Lr) 500 mls @ 50 mls/hr IV .Q10H OMAR Stop: 11/28/24 18:44 Last Admin: 11/28/24 10:16 Dose: 50 mls/hr Naloxone HCl (Naloxone Hcl 0.4 Mg/Ml Vial) 0.04 mg IVPUSH Q5M PRN PRN Reason: Excessive sedation or RR < 8 Povidone Iodine (Povidone Iodine 5 % Ophth Soln 30 Ml Bottle) 1 appl EYE-RIGHT PREOP PRN PRN Reason: Pre-Op Surgical Implant Prophy Home Medications ?Medication ?Instructions ?Recorded ?Confirmed ?Last Taken ?Type methadone 10 mg/5 mL oral solution 60 mg PO Q6H 11/28/24 11/28/24 11/28/24 History Exam Height,Weight and Vital Signs: Height 5 ft 8 in Weight 106.594 kg Last Vital Signs Temp 97.8 F 11/28/24 09:44 Pulse 87 11/28/24 09:44 Resp 20 11/28/24 09:44 BP 128/83 11/28/24 09:44 Pulse Ox 94 11/28/24 09:44 O2 Del Method Room Air 11/28/24 09:44 Airway Mallampati Class: III (poor dentition, missing multiple teeth, denies any loose teeth) TM Dist: >3cm Neck ROM: Full Heart: rrr Lungs: cta Assessment and Plan Assessment Anesthesia Assessment: Anesthesia Plan Discussed and Chart Reviewed Final Anesthetic Review Family History of Problems with Anesthesia: No History of Problems with Anesthesia: No NPO: Yes ASA Class: III Final Preanesthetic Review: No Changes in Pt Med Stat, Meds/Allgs Chart Reviewed, Consent Obtained/Reviewed and Anes Risks/Benef Reviewed Patient Risk: Low Procedure Risk: Low Anesthetic Plan Anesthetic Plan: MAC: Disposition: Standard PACU
--- NOTE | 2024-11-28 10:48 | P.PCNO_ITS ---
Ophthalmology Procedure Procedure Date of Service: 11/28/24 Ophthalmology Viscoelastic: Healon Duet Dual Pack Pro Ophthalmology Lenses: IOL Acrysof MP - [id number] (28.5) Procedure Notes: PREOPERATIVE DIAGNOSIS: Decreased visual acuity right eye secondary to cataract POSTOPERATIVE DIAGNOSIS: Same PROCEDURE: Right cataract extraction with intraocular lens insertion SURGEON: Caleb Hancock M.D. ANESTHESIA: Topical/MAC ESTIMATED BLOOD LOSS: None COMPLICATIONS: None After obtaining informed consent, the patient was brought to the operating room suite and placed in the supine position. After adequate sedation per anesthesia, topical drops of Tetracaine were given to the right eye. The eye was then prepped and draped in the usual sterile fashion. The operating room microscope was then positioned over the operative eye and a lid speculum placed. A paracentesis was created. Viscoelastic was then instilled into the anterior chamber. A three plane incision was then created temporally, utilizing a 2.85 mm keratome. Capsulotomy forceps were then utilized to create a circular tear capsulotomy. Hydrodissection and hydrodelineation were carried out until adequate mobilization of the nucleus occurred. Phacoemulsification was then utilized to remove the dense central nu cleus followed by removal of the cortical material utilizing the automated aspiration irrigation unit. Viscoelastic was instilled into the posterior capsular bag followed by placement of a posterior chamber intraocular lens without difficulty. The residual Viscoelastic was then removed utilizing the automated IA machine. The wound was checked and found to be watertight. The patient tolerated the procedure well and the lid speculum was removed. Intracameral injection of Vigamox 0.1 mL followed by a subtenon injection of Kenalog-40 0.2 mL were administered. The patient will be seen in the a.m.
--- NOTE | 2024-11-28 10:48 | MHC.SHP ---
Pre-Procedural Eval Section A - 24 Hr Update-Section A only Date of Service: 11/28/24 The patient is an INPATIENT: No Changes since office visit: No Cold of Flu in the past 2 weeks, No New Medical Problems, No Changes in Medication and No Patient answered all questions The patient has been examined within 24 hours of the surgical procedure. The History & Physical has been completed within 30 days and I have reviewed it.: Yes Section B - Complete if H&P > 30 days Chief Complaint: Age-related nuclear cataract, right eye Allergies: Allergies Allergy/AdvReac Type Severity Reaction Status Date / Time No Known Allergies (NKA) Allergy Verified 11/18/24 10:48 Plan Diagnosis/Plan: Unchanged I have reviewed the history and physical and performed a pertinent physical examination on my patient. No changes have occurred unless specified. Time Spent With Patient Time: Total time managing care of this patient today ____ minutes.
[2024-11-28 11:13] VITALS: BP 118/78; PULSE 80; RESP 18; TEMP 36.3; O2SAT 91
== END 2024-11-28 11:22 | disposition home or self-care (01) ==
PROVIDERS: PCP Internal Medicine; Visit Provider Ophthalmology
PROC: (CPT 66985; principal; 2024-11-28 09:30)
DX: H25.11 Age-related nuclear cataract, right eye (principal); H53.8 Other visual disturbances; H35.09 Other intraretinal microvascular abnormalities; B18.2 Chronic viral hepatitis C; F51.01 Primary insomnia; E66.9 Obesity, unspecified; Z68.35 Body mass index [BMI] 35.0-35.9, adult; F41.1 Generalized anxiety disorder; Z79.899 Other long term (current) drug therapy; F17.290 Nicotine dependence, other tobacco product, uncomplicated; Z98.890 Other specified postprocedural states
CPT/HCPCS: 66984; J2250; J3010; J3301; V2630